=== PATIENT | female | born 1940 | race Caucasian/White ===

== ENCOUNTER 2017-06-15 04:35 | Inpatient (IN) ==
[2017-06-15] MEDS ORDERED: 0.9 % Sodium Chloride 1,000 ML IVC ONE (04:42)
[2017-06-15] MEDS ORDERED: Ondansetron 4 MG/2 ML VIAL IVP ONE (04:44)
[2017-06-15] MEDS ORDERED: *HR* Promethazine 25 MG/ML VIAL IM ONE (04:44)
--- NOTE | 2017-06-15 04:47 | Emergency Department Note ---
START Narrative - START START: I examined this patient and my medical decision-making was reviewed with the Resident Physician. I agree with the documented findings, disposition and treatment plan as described except to the extent set forth below. Afib with RVR , vomiting, will obtain labs and CT SCAN. Disposition pending results of CT scan. I spent greater than 35 minutes of critical care time resuscitating this acutely ill patient suffering from vomiting and afib with rvr. Critical care time is excluding billable procedures.
--- NOTE | 2017-06-15 04:47 | Emergency Department Note ---
Disposition Clinical Impression: NSTEMI (non-ST elevated myocardial infarction) Disposition: Admitted As Inpatient Condition: Good Referrals: Emily Flaherty MD [Primary Care Provider] - Forms: ED Satisfaction Letter, Work/School Release Abdominal Pain HPI - General Chief Complaint: ED Abdominal Pain Stated Complaint: vomiting Time Seen by Provider: 06/15/17 04:42 Source: patient Mode of arrival: ambulatory Limitations: no limitations Nursing Notes Reviewed: Yes Vital Signs Reviewed: Yes - History of Present Illness HPI Narrative: Patient presents to the emergency department for nausea and vomiting. Patient has a history of nausea and vomiting and takes Zofran and Phenergan at home. Patient's symptoms started at 8 PM. Patient's symptoms worsened throughout the night and she called her daughter who then brought her to the emergency department by squad for evaluation. The patient has had 2 MIs in the past that presented with only nausea and vomiting. No chest pain or radiation of pain to the shoulder or jaw. No shortness of breath. Patient is in mild distress with associated nausea and vomiting is not able to further characterize the rest of her symptoms. She states that she just does not feel well. Denies fever or chills. Denies cough or URI symptoms. Denies abdominal pain or blood in her stool. Pain Scale: 0 - Related Data Home Medications Medication Instructions Recorded Confirmed Amlodipine Besylate 10 mg PO HS 04/28/16 04/28/16 Clopidogrel [Plavix] 75 mg PO DAILY 04/28/16 04/28/16 Docusate Sodium [Dok] 100 mg PO BID 04/28/16 04/28/16 Esomeprazole Magnesium [Nexium] 40 mg PO BID 04/28/16 04/28/16 FentaNYL PATCH [Duragesic] 75 mcg TD Q72H 04/28/16 04/28/16 Ferrous Sulfate [Iron] 325 mg PO HS 04/28/16 04/28/16 HYDROcodone/Acet 10/325 mg [[place] 1 tab PO Q6HR PRN 04/28/16 04/28/16 10-325 mg] Irbesartan [Avapro] 300 mg PO DAILY 04/28/16 04/28/16 Metoprolol XL (24 HR) Succ [Toprol 100 mg PO DAILY 04/28/16 04/28/16 Xl] Rosuvastatin [Crestor] 20 mg PO HS 04/28/16 04/28/16 Sucralfate [Carafate] 1 gm PO QPM 04/28/16 04/28/16 Previous Rx's Medication Instructions Recorded Warfarin [Coumadin] 3 mg PO HS #0 04/29/16 Allergies Allergy/AdvReac Type Severity Reaction Status Date / Time aspirin [ASA] AdvReac Gastrointestinal Verified 04/29/16 13:34 Upset Rmwzmey-Vce-Xnf Reductase AdvReac See Verified 04/29/16 13:34 Inhibitor Comments [Statins] Review of Systems: CONSTITUTIONAL: No weight loss, fever, chills, weakness or fatigue. HEENT: Eyes: No visual changes. Ears, Nose, Throat: No hearing loss, difficulty talking or unable to swallow. SKIN: No rash or itching. CARDIOVASCULAR: No chest pain, chest pressure or chest discomfort. No palpitations or edema. RESPIRATORY: No shortness of breath, cough or sputum. GASTROINTESTINAL: Nausea and vomitting. No abdominal pain. GENITOURINARY: No burning on urination or hematuria. NEUROLOGICAL: No headache, dizziness, syncope, paralysis, ataxia, numbness or tingling in the extremities. No change in bowel or bladder control. MUSCULOSKELETAL: No muscle pain, back pain, joint pain or stiffness. Abdominal Pain PMH - Past Medical History Medical history: Reports: atrial fibrillation, CHF, coronary artery disease, CVA , hyperlipidemia, hypertension, myocardial infarction, TIA, other Female Surgical History: Reports: non-contributory Psychiatric history: Reports: no psych history - Social History Smoking status: Never smoker Alcohol use: Reports: none Drug use: Reports: none Physical Exam General: Patient in mild distress with nausea and vomiting Head: Normocephalic Atraumatic Eyes: PERRL, EOMI ENT: Airway patent, no stridor Neck: supple, no meningismus Chest: Lungs clear to auscultation bilateral Cardiac: Regular rate and rhythm, no murmurs, rubs or gallops Abdomen: soft, nontender, nondistended; no guarding, rebound, or tenderness to percussion Musculoskeletal: Calves symmetric, nontender, no palpable cord Skin: No rash, normal skin tone Neuro: Alert and Oriented to person; No focal deficit, - General General appearance: alert Course - Reevaluation(s) Reevaluation #1: Patient has required multiple nausea medications including Zofran, Phenergan, Ativan, Haldol. Patient's nausea is now somewhat controlled. Patient will receive rectal aspirin as well as heparin. Patient will be admitted for NSTEMI. - Consultations Consultation #1: Discussed with hospitalist, Dr. Yip, patient accepted for admission. Vital Signs Temperature 97.7 F 06/15/17 04:36 Pulse Rate 124 06/15/17 04:36 Respiratory Rate 21 06/15/17 04:36 Blood Pressure 153/114 06/15/17 04:36 O2 Sat by Pulse Oximetry 98 06/15/17 04:36 Temperature 97.7 F 06/15/17 04:36 Pulse Rate 99 06/15/17 06:19 Respiratory Rate 20 06/15/17 06:19 Blood Pressure 185/135 06/15/17 06:19 O2 Sat by Pulse Oximetry 99 06/15/17 06:19 Oxygen Delivery Oxygen Delivery Room Air Abdominal Pain - Medical Records Medical records reviewed: Yes I reviewed the patient's medical records. - Lab Data Lab results reviewed: Yes I reviewed the patient's lab results. Result diagrams: 06/15/17 04:32 06/15/17 04:32 Lab Results 06/15/17 06/15/17 06/15/17 Range/Units 04:30 04:32 04:32 WBC 15.9 H (4.3-11.1) K/mcL RBC 4.18 (3.82-4.97) M/mcL Hgb 13.5 (11.5-15.4) g/dL Hct 41.5 (35.3-44.9) % MCV 99.3 (83.0-100.0) fL MCH 32.3 (28.0-33.3) pg MCHC 32.5 (31.6-35.5) g/dL RDW 14.8 H (11.5-14.5) % Plt Count 170 (140-400) K/mcL MPV 10.2 (9.4-12.4) fL Immature Gran % 0.4 (0-4) % Seg Neutrophils % 79.5 % Lymphocytes % 14.2 % Monocytes % 5.3 % Eosinophils % 0.3 % Basophils % 0.3 % Neutrophils # 12.6 H (1.6-8.9) K/mcL Lymphocytes # 2.3 (0.6-4.6) K/mcL Monocytes # 0.8 (0.0-1.3) K/mcL Eosinophils # 0.0 (0.0-0.6) K/mcL Basophils # 0.0 (0.0-0.2) K/mcL PT 19.7 H (9.4-12.1) Seconds INR 1.8 APTT 23.7 L (26.0-36.0) Seconds Sodium (136-145) mEq/L Potassium (3.5-5.1) mEq/L Chloride (98-107) mEq/L Carbon Dioxide (23-29) mEq/L BUN (8-23) mg/dL Creatinine (0.60-1.20) mg/dL Est GFR ( Amer) (> 60) Est GFR (Non-Af Amer) (> 60) BUN/Creatinine Ratio (6-26) Glucose (70-105) mg/dL Calculated Osmolality (280-300) Lactic Acid (0.5-2.2) mmol/L Calcium (8.6-10.3) mg/dL Phosphorus (2.7-4.5) mg/dL Magnesium (1.6-2.6) mg/dL Total Bilirubin (0.3-1.0) mg/dL Direct Bilirubin (0.0-0.2) mg/dL Indirect Bilirubin (0.0-1.2) mg/dL AST (13-39) Units/L ALT (7-52) Units/L Alkaline Phosphatase (34-104) Units/L Troponin I (< 0.04) ng/mL Serum Total Protein (6.4-8.9) g/dL Albumin (3.5-5.7) g/dL Globulin (2.4-3.5) g/dL Albumin/Globulin Ratio (1.1-2.2) Lipase (11-82) Units/L Urine Color Yellow (Yellow) Urine Clarity Clear (Clear) Urine pH 7.5 (5.0-8.0) pH Units Ur Specific [place] 1.014 (1.010-1.025) Urine Protein >=1000 H (Neg-Trace) mg/dL Urine Glucose (UA) 100 H (Normal) mg/dL Urine Ketones Trace H (Negative) mg/dL Urine Blood Small H (Negative) Urine Nitrite Negative (Negative) Urine Bilirubin Negative (Negative) Urine Urobilinogen Normal (Normal) mg/dL Ur Leukocyte Esterase Negative (Negative) Urine Microscopic RBC 0-3 (0-3) per hpf Urine Microscopic WBC 5-15 H (0-3) per hpf Ur Squamous Epith Cells Moderate H (None-Few) per lpf Ur Renal Epithelial Cell Few (None-Few) per hpf Urine Bacteria Moderate H (None-Few) per hpf Hyaline Casts Few (None-Few) per lpf Ur Culture Indicated? NO (NO) 06/15/17 06/15/17 06/15/17 Range/Units 04:32 04:32 04:32 WBC (4.3-11.1) K/mcL RBC (3.82-4.97) M/mcL Hgb (11.5-15.4) g/dL Hct (35.3-44.9) % MCV (83.0-100.0) fL MCH (28.0-33.3) pg MCHC (31.6-35.5) g/dL RDW (11.5-14.5) % Plt Count (140-400) K/mcL MPV (9.4-12.4) fL Immature Gran % (0-4) % Seg Neutrophils % % Lymphocytes % % Monocytes % % Eosinophils % % Basophils % % Neutrophils # (1.6-8.9) K/mcL Lymphocytes # (0.6-4.6) K/mcL Monocytes # (0.0-1.3) K/mcL Eosinophils # (0.0-0.6) K/mcL Basophils # (0.0-0.2) K/mcL PT (9.4-12.1) Seconds INR APTT (26.0-36.0) Seconds Sodium 138 (136-145) mEq/L Potassium 4.1 (3.5-5.1) mEq/L Chloride 100 (98-107) mEq/L Carbon Dioxide 25 (23-29) mEq/L BUN 16 (8-23) mg/dL Creatinine 0.67 (0.60-1.20) mg/dL Est GFR ( Amer) > 60 (> 60) Est GFR (Non-Af Amer) > 60 (> 60) BUN/Creatinine Ratio 24 (6-26) Glucose 167 H (70-105) mg/dL Calculated Osmolality 291 (280-300) Lactic Acid 2.4 H (0.5-2.2) mmol/L Calcium 10.2 (8.6-10.3) mg/dL Phosphorus 3.8 (2.7-4.5) mg/dL Magnesium 1.8 (1.6-2.6) mg/dL Total Bilirubin 0.7 (0.3-1.0) mg/dL Direct Bilirubin 0.1 (0.0-0.2) mg/dL Indirect Bilirubin 0.6 (0.0-1.2) mg/dL AST 23 (13-39) Units/L ALT 22 (7-52) Units/L Alkaline Phosphatase 83 (34-104) Units/L Troponin I 0.26 H* (< 0.04) ng/mL Serum Total Protein 8.8 (6.4-8.9) g/dL Albumin 5.3 (3.5-5.7) g/dL Globulin 3.5 (2.4-3.5) g/dL Albumin/Globulin Ratio 1.5 (1.1-2.2) Lipase 26 (11-82) Units/L Urine Color (Yellow) Urine Clarity (Clear) Urine pH (5.0-8.0) pH Units Ur Specific [place] (1.010-1.025) Urine Protein (Neg-Trace) mg/dL Urine Glucose (UA) (Normal) mg/dL Urine Ketones (Negative) mg/dL Urine Blood (Negative) Urine Nitrite (Negative) Urine Bilirubin (Negative) Urine Urobilinogen (Normal) mg/dL Ur Leukocyte Esterase (Negative) Urine Microscopic RBC (0-3) per hpf Urine Microscopic WBC (0-3) per hpf Ur Squamous Epith Cells (None-Few) per lpf Ur Renal Epithelial Cell (None-Few) per hpf Urine Bacteria (None-Few) per hpf Hyaline Casts (None-Few) per lpf Ur Culture Indicated? (NO) - Radiology Data Radiology results reviewed: Yes I reviewed the patient's radiology results. - EKG Data EKG attestation: Yes I reviewed and interpreted this EKG. EKG results narrative: EKG shows atrial fibrillation with ventricular rate of 123. Patient has depressions in the lateral leads as well as in lead 2. Patient has T-wave changes in 1 and aVL. Does not meet STEMI criteria.
[2017-06-15 05:20] LABS: Basophils % 0.3 %; Eosinophils % 0.3 %; Hematocrit 41.5 % (35.3-44.9); Hemoglobin 13.5 g/dL (11.5-15.4); Immature Granulocytes % 0.4 % (0-4); Lymphocytes # 2.3 K/mcL (0.6-4.6); Lymphocytes % 14.2 %; Mean Corpuscular HGB Conc 32.5 g/dL (31.6-35.5); Mean Corpuscular Hemoglobin 32.3 pg (28.0-33.3); Mean Corpuscular Volume 99.3 fL (83.0-100.0); Mean Platelet Volume 10.2 fL (9.4-12.4); Monocytes # 0.8 K/mcL (0.0-1.3); Monocytes % 5.3 %; Neutrophils # 12.6 K/mcL (1.6-8.9); Platelet Count 170 K/mcL (140-400); Red Blood Count 4.18 M/mcL (3.82-4.97); Red Cell Distribution Width 14.8 % (11.5-14.5); Segmented Neutrophils % 79.5 %
[2017-06-15 05:20] LABS: Bilirubin,Urine Negative (Negative); Blood,Urine Small (Negative); Clarity,Urine Clear (Clear); Color,Urine Yellow (Yellow); Glucose,Urine (UA) 100 mg/dL (Normal); Ketones,Urine Trace mg/dL (Negative); Leukocyte Esterase,Urine Negative (Negative); Nitrite,Urine Negative (Negative); PH,Urine 7.5 pH Units (5.0-8.0); Protein,Urine >=1000 mg/dL (Neg-Trace); Specific Gravity,Urine 1.014 (1.010-1.025); Urobilinogen,Urine Normal (Normal)
[2017-06-15 05:22] LABS: Hyaline Casts,Urine Few per lpf (None-Few); RBC,Urine 0-3 per hpf (0-3)
[2017-06-15 05:24] LABS: Activated Partial Thrombo Time 23.7 Seconds (26.0-36.0); INR 1.8; Prothrombin Time 19.7 Seconds (9.4-12.1)
[2017-06-15 05:27] LABS: Alanine Aminotransferase 22 Units/L (7-52); Albumin 5.3 g/dL (3.5-5.7); Albumin/Globulin Ratio 1.5 (1.1-2.2); Alkaline Phosphatase 83 Units/L (34-104); Aspartate Amino Transferase 23 Units/L (13-39); BUN/Creatinine Ratio 24 (6-26); Bilirubin,Direct 0.1 mg/dL (0.0-0.2); Bilirubin,Indirect 0.6 mg/dL (0.0-1.2); Bilirubin,Total 0.7 mg/dL (0.3-1.0); Blood Urea Nitrogen 16 mg/dL (8-23); Calcium 10.2 mg/dL (8.6-10.3); Carbon Dioxide 25 mEq/L (23-29); Chloride 100 mEq/L (98-107); Globulin 3.5 g/dL (2.4-3.5); Glucose 167 mg/dL (70-105); Lipase 26 Units/L (11-82); Magnesium 1.8 mg/dL (1.6-2.6); Osmolality,Calculated 291 (280-300); Phosphorous 3.8 mg/dL (2.7-4.5); Potassium 4.1 mEq/L (3.5-5.1); Sodium 138 mEq/L (136-145); Total Protein 8.8 g/dL (6.4-8.9); eGFR For African Americans > 60 (> 60); eGFR For Non-African Americans > 60 (> 60)
[2017-06-15 05:34] LABS: Renal Epithelial Cells,Urine Few per hpf (None-Few)
[2017-06-15 05:35] LABS: Bacteria,Urine Moderate per hpf (None-Few); Squamous Epithelial Cell,Urine Moderate per lpf (None-Few)
[2017-06-15] MEDS ORDERED: *HR* FentaNYL (PF) 100 MCG/2 ML VIAL IVP STA (05:47)
[2017-06-15] MEDS ORDERED: *HR* LORazepam 2 MG/ML VIAL IVP ONE (05:48)
[2017-06-15] MEDS ORDERED: Haloperidol Lactate 5 MG/ML VIAL IVP STA (06:35)
[2017-06-15] MEDS ORDERED: *HR* Heparin 5,000 UNIT/ML VIAL IVP ONE (06:44)
[2017-06-15] MEDS: Heparin 25,000 UNIT/500 ML D5W 25,000 UNIT/500 ML BAG IVC SCH (07:07)
[2017-06-15] MEDS ORDERED: Ondansetron 4 MG/2 ML VIAL IVP STA (07:32)
[2017-06-15] MEDS ORDERED: *HR* FentaNYL (PF) 100 MCG/2 ML VIAL IVP ONE (07:32)
[2017-06-15] MEDS ORDERED: *HR* Morphine 2 MG/ML SYRINGE IVP ONE (08:29)
[2017-06-15] MEDS: Metoprolol XL (24 HR) Succ 50 MG TAB.ER.24H PO SCH (11:17)
[2017-06-15] MEDS ORDERED: Naloxone 0.4 MG/ML INJ IVP PRN (12:24)
--- NOTE | 2017-06-15 12:24 | Internal Med History&Physical ---
Date of Encounter: 06/15/17 Time of Encounter: 12:24 Assessment and Plan (1) NSTEMI (non-ST elevated myocardial infarction) Current visit: Yes Status: Acute 76/female Multiple comorbid conditions as mentioned below. Admitted with nausea and vomiting. Noted that she has elevated troponin in the emergency room. Allergies in from cardiology was called for possible non-STEMI. Plan: Admit as inpatient: Patient needs IV heparin. Cardiac diet/nothing by mouth from midnight for possible procedure tomorrow. IV heparin as per protocol. Beta blockers to control heart rate Resumed home medications. Cardiology to evaluate for possible cardiac catheterization. Of note: I examined this patient in emergency department room #21. Many family members including patient's was at bedside. I have discussed the plan with the patient's . (2) Atrial fibrillation Current visit: No Status: Chronic Patient is known to have atrial fibrillation. Rate control: Beta blockers Anticoagulation: Warfarin Qualifiers: Atrial fibrillation type: paroxysmal Qualified Code(s): I48.0 - Paroxysmal atrial fibrillation (3) Hypertension Current visit: No Status: Chronic Well controlled at this time Qualifiers: Hypertension type: essential hypertension Qualified Code(s): I10 - Essential (primary) hypertension (4) CAD (coronary artery disease) Current visit: No Status: Suspected Patient is a history of coronary artery disease. She had a percutaneous coronary intervention in 2011 Qualifiers: Coronary Disease-Associated Artery/Lesion type: [place] artery [place] vs. transplanted heart: [place] heart Associated angina: with unstable angina Qualified Code(s): I25.110 - Atherosclerotic heart disease of [place] coronary artery with unstable angina pectoris (5) DVT prophylaxis Current visit: Yes Status: Acute Heparin drip Medical decision making: This patient has a moderate to severe risk of worsening in spite of being on appropriate medication/treatment due to the underlying chronic comorbid conditions. Internal Medicine - H&P: HPI Chief complaint: Nausea and vomiting. Admitted From: Emergency Dept Plans for Post Hospital Care: Home History of present illness: PCP: Emily Flaherty Brief PMh: Hypertension, hyperlipidemia, coronary artery disease, atrial fibrillation, congestive heart failure, previous TIA/CVA, History of present medical illness: Patient has a persistent worsening symptoms of nausea and ongoing vomiting since last 8 PM. Patient initially thought the symptoms were resolved but since they were persistent she decided to call her daughter for help. Patient's daughter works at [employer]. Patient's daughter went to her mother's house, she called [facility] and brought to this hospital for further evaluation. Patient had a worsening nausea and she had an episode of vomiting. Patient denies any chest pain or chest pressure or radiation of her pain to her arm or jaw. Patient was in mild distress secondary to the nausea and vomiting. Patient denies abdominal pain, diarrhea or dizziness. Workup in the emergency room: Patient was evaluated in the emergency room. Basic labs were drawn. EKG was not suggestive of any ST elevation infarction. Her initial troponin were 0.26. Chest x-ray negative for any acute process. CT abdomen and pelvis was negative for any acute process. Reason for admission: Possible non-ST elevation myocardial infarction. Needs IV heparin Family history: Noncontributory Past Med Surg Social Fam HX - Past Medical History Medical history: atrial fibrillation, CHF, coronary artery disease, CVA, hyperlipidemia, hypertension, myocardial infarction, TIA, other Psychiatric history: no psych history - Past Surgical History Surgical History: angioplasty/stent, cholecystectomy, KRISHNA/BSO, other - Social History Smoking Status: Never smoker Smokeless Tobacco Status: No Alcohol use: none Drug use: none Internal Medicine - H&P: Meds Amlodipine Besylate 10 mg PO HS 04/28/16 [History] Clopidogrel [Plavix] 75 mg PO DAILY 04/28/16 [History] Docusate Sodium [Dok] 100 mg PO BID 04/28/16 [History] Esomeprazole Magnesium [Nexium] 40 mg PO BID 04/28/16 [History] FentaNYL PATCH [Duragesic] 75 mcg TD Q72H 04/28/16 [History] Ferrous Sulfate [Iron] 325 mg PO HS 04/28/16 [History] HYDROcodone/Acet 10/325 mg [[place] 10-325 mg] 1 tab PO Q6HR PRN 04/28/16 [History ] Irbesartan [Avapro] 300 mg PO DAILY 04/28/16 [History] Metoprolol XL (24 HR) Succ [Toprol Xl] 100 mg PO DAILY 04/28/16 [History] Rosuvastatin [Crestor] 20 mg PO HS 04/28/16 [History] Sucralfate [Carafate] 1 gm PO QPM 04/28/16 [History] Warfarin [Coumadin] 3 mg PO HS #0 04/29/16 [Rx] 3 Allergy/AdvReac Type Severity Reaction Status Date / Time aspirin [ASA] AdvReac Gastrointestinal Verified 04/29/16 13:34 Upset Wtfkdkm-Nvg-Mxd Reductase AdvReac See Verified 04/29/16 13:34 Inhibitor Comments [Statins] All Systems PM: A 10-system review of systems was performed and is negative for pertinent findings except as documented above in the HPI. - Constitutional Constitutional: no chills, no fever(s), no night sweats - EENT Eyes: no change in vision, no discharge, no pain, no photophobia Ears: no ear discharge, no ear pain, no tinnitus Nose, mouth and throat: no dysphagia, no nasal discharge, no neck pain, no sore throat - Cardiovascular Cardiovascular ROS IM: no chest pain, no diaphoresis, no dyspnea, no lightheadedness, no palpitations, no syncope - Respiratory Respiratory: no cough, no dyspnea, no wheezing, no excessive phlegm production - Gastrointestinal Gastrointestinal: nausea, vomiting, no abdominal pain, no diarrhea, no hematemesis, no hematochezia, no melena - Genitourinary Genitourinary: no change in urinary stream, no dysuria, no flank pain, no hematuria - Musculoskeletal Musculoskeletal ROS IM: no numbness, no tingling - Integumentary Integumentary IM: no rash, no unusual bruising - Neurological Neurological ROS: no confusion, no convulsions, no focal weakness, no numbness, no tingling, no tremor(s) - Hematologic/Lymphatic Hematologic/Lymphatic: no easy bruising - Constitutional Vitals: Temp Pulse Resp BP Pulse Ox 98.1 F 95 14 132/68 95 06/15/17 11:16 06/15/17 11:16 06/15/17 11:16 06/15/17 11:16 06/15/17 11:16 General appearance: Present: A&O X 3, pleasant, no acute distress, answers questions appropriately - Head Head exam: Present: atraumatic, normocephalic - Eye Eye exam: Present: PERRL, conjuntiva pink, sclera anicteric Pupils: Present: PERRL - Neck Neck exam general surgery: Present: supple, trachea midline. Absent: lymphadenopathy - Respiratory Respiratory exam: Present: CTAB. Absent: accessory muscle use, rales, rhonchi, wheezes - Cardiovascular Cardiovascular exam: Present: RRR, +S1, +S2. Absent: diastolic murmur, gallop, rubs, systolic murmur - GI/Abdominal GI/Abdominal exam: Present: normal bowel sounds, soft, no peritoneal signs. Absent: distended, tenderness - Extremities Exam Extremities exam: Present: warm, radial pulses palpable and symmetrical. Absent : calf tenderness, cyanotic, pedal edema - Neurological Exam Neurological exam: Present: CN II-XII intact, oriented X3, no focal deficits. Absent: pronater drift, facial droop, speech deficit - Skin Skin exam: Present: dry, intact Internal Med - H&P Results - Labs CBC & Chem 7: 06/15/17 04:32 06/15/17 04:32 Labs: Cardiac Enzymes 06/15/17 Range/Units 10:09 Troponin I 0.73 H* (< 0.04) ng/mL
--- NOTE | 2017-06-15 12:39 | Cardiology Consult Note ---
Date of Encounter: 06/15/17 Time of Encounter: 12:36 Assessment and Plan Discussion w patient/family: The assessment and plan as outlined above was discussed with the patient and/or family members who expressed understanding and agreement. All questions were answered. Thank you for involving us in the care of your patient. Please call with any questions. 76 YOF with AFIB and hx of CAD (PCI 2011) now with NSTEMI. Multipe comorbidities with PUD and constant incessant nausea over past few years. ECHO to evaluate for RWMA in order to risk stratify need for invasive vs conservative medical management. History of Present Illness Consult date: 06/15/17 Consult reason: elevated troponins Chief complaint: nausea and vomiting History of present illness: Ms. Gutierrez is a 76 year old female with hx of Afib (on coumadin), HTN, CAD s/p PCI last in 2011 at an outside hospital presents with continuous nausea and vomiting. Patient does have hx of PUD and follows with GI. Apparently on phenergan and PPI almost constantly due to her symptoms. She also is unable to complete her meals due to above symtpoms. Patient is currently sedated and unable to provide hx mostly obtained from family. Her troponins are mildly elevated at .73 now but she has not complained of chest pain. She was hypertensive also on presentation with tachycardia. EKG reveals diffuse ST changes in the setting of Afib. Previous EKG also reveal ST changes in the anterolateral leads. Previous ECHO in 2016 revealed preserved EF with no RWMA. Will obtain a limited ECHO for EF to evaluate changes. ECHO will help risk stratify as family unsure if they want invasive or conservative management. Past Med Surg Social Fam HX - Past Medical History Medical history: atrial fibrillation, CHF, coronary artery disease, CVA, hyperlipidemia, hypertension, myocardial infarction, TIA, other Psychiatric history: no psych history - Past Surgical History Surgical History: angioplasty/stent, cholecystectomy, KRISHNA/BSO, other - Social History Smoking Status: Never smoker Smokeless Tobacco Status: No Alcohol use: none Drug use: none Medications and Allergies Amlodipine Besylate 10 mg PO HS 04/28/16 [History] Clopidogrel [Plavix] 75 mg PO DAILY 04/28/16 [History] Docusate Sodium [Dok] 100 mg PO BID 04/28/16 [History] Esomeprazole Magnesium [Nexium] 40 mg PO BID 04/28/16 [History] FentaNYL PATCH [Duragesic] 75 mcg TD Q72H 04/28/16 [History] Ferrous Sulfate [Iron] 325 mg PO HS 04/28/16 [History] HYDROcodone/Acet 10/325 mg [[place] 10-325 mg] 1 tab PO Q6HR PRN 04/28/16 [History ] Irbesartan [Avapro] 300 mg PO DAILY 04/28/16 [History] Metoprolol XL (24 HR) Succ [Toprol Xl] 100 mg PO DAILY 04/28/16 [History] Rosuvastatin [Crestor] 20 mg PO HS 04/28/16 [History] Sucralfate [Carafate] 1 gm PO QPM 04/28/16 [History] Warfarin [Coumadin] 3 mg PO HS #0 04/29/16 [Rx] 3 Allergy/AdvReac Type Severity Reaction Status Date / Time aspirin [ASA] AdvReac Gastrointestinal Verified 04/29/16 13:34 Upset Wumodhc-Chk-Nqz Reductase AdvReac See Verified 04/29/16 13:34 Inhibitor Comments [Statins] All Systems Review: A 10-system review of systems was performed and is negative for pertinent findings except as documented above in the HPI. Physical Examination Vital Signs, Last 4 Hours Temp Pulse Resp BP Pulse Ox 06/15/17 11:16 98.1 F 95 14 132/68 95 06/15/17 08:45 100.1 F H 95 15 167/90 95 General: Conversant, No Apparent Distress HEENT: Atraumatic, Normocephaly, Mucus Membranes Moist Neck: No JVD, Normal carotid pulses Cardiac: Reg Rate and Rhythm, Normal S1 and S2, No Murmur Lungs: Normal Breath Sounds, No Wheeze, Rales, Rhonchi Neuro: Alert and responsive, No focal deficits noted Abdomen: Soft, Non-Tender Skin: No rashes noted on visualized skin Musculoskeletal: No Chest Wall Tenderness Extremities: No Clubbing, No Cyanosis, No Edema, Normal Pulses Results 06/15/17 04:32 06/15/17 04:32 Lab Results 06/15/17 10:09 Troponin I 0.73 H* Consult Discharge Plan - Plan Referrals: Emily Flaherty MD [Primary Care Provider] -
[2017-06-15] MEDS: *HR* Heparin 5,000 UNIT/ML VIAL IVP PRN (14:58)
[2017-06-15] MEDS: *HR* Morphine 2 MG/ML SYRINGE IVP PRN ×2 (14:58→20:29)
[2017-06-15] MEDS: amLODIPine 5 MG TABLET PO SCH (20:28)
[2017-06-16] MEDS: *HR* Morphine 2 MG/ML SYRINGE IVP PRN ×3 (00:36→09:29)
[2017-06-16 02:37] LABS: Basophils % 0.2 %; Eosinophils % 0.4 %; Hematocrit 36.5 % (35.3-44.9); Immature Granulocytes % 0.6 % (0-4); Lymphocytes % 23.6 %; Mean Corpuscular HGB Conc 32.6 g/dL (31.6-35.5); Mean Corpuscular Hemoglobin 32.1 pg (28.0-33.3); Mean Corpuscular Volume 98.4 fL (83.0-100.0); Mean Platelet Volume 10.2 fL (9.4-12.4); Monocytes # 0.6 K/mcL (0.0-1.3); Monocytes % 7.1 %; Neutrophils # 5.8 K/mcL (1.6-8.9); Platelet Count 143 K/mcL (140-400); Red Blood Count 3.71 M/mcL (3.82-4.97); Segmented Neutrophils % 68.1 %
[2017-06-16 02:43] LABS: Hemoglobin 11.9 g/dL (11.5-15.4)
[2017-06-16 02:46] LABS: INR 1.5; Prothrombin Time 16.8 Seconds (9.4-12.1)
[2017-06-16 02:49] LABS: Activated Partial Thrombo Time 80.6 Seconds (26.0-36.0)
[2017-06-16 02:56] LABS: Albumin 3.9 g/dL (3.5-5.7); Albumin/Globulin Ratio 1.5 (1.1-2.2); Bilirubin,Total 0.6 mg/dL (0.3-1.0); Calcium 8.5 mg/dL (8.6-10.3); Chol/HDL Ratio 3.2 (0-4.9); Globulin 2.6 g/dL (2.4-3.5); Magnesium 1.7 mg/dL (1.6-2.6); Phosphorous 5.7 mg/dL (2.7-4.5); Total Protein 6.5 g/dL (6.4-8.9)
[2017-06-16] MEDS: Metoprolol XL (24 HR) Succ 50 MG TAB.ER.24H PO SCH (08:47)
--- NOTE | 2017-06-16 09:35 | Event Note ---
Date of Encounter: 06/16/17 Time of Encounter: 09:32 - Cardiology Event Note NSTEMI, peak troponin 1.15, now downtrending. Echo EF reduced, 35% with regional wall motion abnormalities. EF previously 65-70% 04/29/17. ASA listed as allergy. Discussed with pt. She is able to tolerate 81mg ASA without issue. She gets stomach upset with full dose ASA. Creatinine 1.19--mildly elevated from her baseline. Will give IVF. Recommend C given NSTEMI and reduced EF. R/B /A discussed. Pt agrees to proceed. LHC today.
[2017-06-16] MEDS ORDERED: 0.9 % Sodium Chloride 1,000 ML IVC SCH (09:45)
--- NOTE | 2017-06-16 12:44 | Pre-Sedation Evaluation ---
Pre-sedation evaluation - Pre-sedation checklist Date of procedure: 06/16/17 Procedure: [facility] Recent Vitals: Last Vital Signs Temp 98.1 F 06/16/17 11:29 Pulse 55 06/16/17 11:29 Resp 16 06/16/17 11:29 BP 119/68 06/16/17 11:29 Pulse Ox 95 06/16/17 11:29 H&P (including ROS) documented in medical record: Yes Previous reaction to sedatives/anesthetics: No Dietary Status: NPO after Midnight Dentition: dentures removed ASA Classification *see protocol: CLASS II-Mild systemic disease Plan of Care: Pt appropriate candidate for procedure/moderate/conscious sedation
--- NOTE | 2017-06-16 12:48 | Internal Med Progress Note ---
Date of Encounter: 06/16/17 Time of Encounter: 12:45 - Assessment and plan (1) NSTEMI (non-ST elevated myocardial infarction) Current Visit: Yes Status: Acute Assessment and plan: Troponin peaked at 1.15 Scheduled to have a cardiac catheterization today Continue aspirin, heparin drip, metoprolol, morphine as needed and Crestor Nitroglycerin as needed (2) Atrial fibrillation Current Visit: No Status: Chronic Qualifiers: Atrial fibrillation type: paroxysmal Qualified Code(s): I48.0 - Paroxysmal atrial fibrillation (3) PUD (peptic ulcer disease) Current Visit: No Status: Chronic Assessment and plan: Omeprazole (4) CVA (cerebral vascular accident) Current Visit: No Status: Chronic Assessment and plan: Aspirin Qualifiers: CVA mechanism: unspecified Qualified Code(s): I63.9 - Cerebral infarction, unspecified (5) Accelerated hypertension Current Visit: Yes Status: Acute Assessment and plan: Continue losartan Use hydralazine IV as needed - Subjective Interval history: History of breath, denies any chest pain, no abdominal pain, no dysuria. No fevers or chills, no diarrhea - Constitutional Vitals: Temp Pulse Resp BP Pulse Ox 98.1 F 55 16 119/68 95 06/16/17 11:29 06/16/17 11:29 06/16/17 11:29 06/16/17 11:29 06/16/17 11:29 General appearance: Present: A&O X 3, pleasant, no acute distress, answers questions appropriately - Head Head exam: Present: atraumatic, normocephalic - Eye Eye exam: Present: PERRL, conjuntiva pink, sclera anicteric Pupils: Present: PERRL - Neck Neck exam general surgery: Present: supple, trachea midline. Absent: lymphadenopathy - Respiratory Respiratory exam: Present: CTAB. Absent: accessory muscle use, rales, rhonchi, wheezes - Cardiovascular Cardiovascular exam: Present: RRR, +S1, +S2. Absent: diastolic murmur, gallop, rubs, systolic murmur - GI/Abdominal GI/Abdominal exam: Present: normal bowel sounds, soft, no peritoneal signs. Absent: distended, tenderness - Extremities Exam Extremities exam: Present: warm, radial pulses palpable and symmetrical. Absent : calf tenderness, cyanotic, pedal edema - Neurological Exam Neurological exam: Present: CN II-XII intact, oriented X3, no focal deficits. Absent: pronater drift, facial droop, speech deficit - Skin Skin exam: Present: dry, intact Internal Medicine: Result - Labs CBC & Chem 7: 06/16/17 02:24 06/16/17 02:24 Labs: Short CBC 06/16/17 Range/Units 02:24 WBC 8.5 (4.3-11.1) K/mcL Hgb 11.9 D (11.5-15.4) g/dL Hct 36.5 (35.3-44.9) % Plt Count 143 (140-400) K/mcL Neutrophils # 5.8 (1.6-8.9) K/mcL BMP 06/16/17 02:24 Sodium 136 Potassium 4.0 Chloride 102 Carbon Dioxide 23 BUN 29 H Creatinine 1.19 Glucose 106 H Calcium 8.5 L Cardiac Enzymes 06/15/17 06/15/17 06/16/17 Range/Units 12:35 18:40 00:32 Troponin I 1.15 H* 1.02 H* 0.71 H* (< 0.04) ng/mL Liver Function 06/16/17 Range/Units 02:24 Total Bilirubin 0.6 (0.3-1.0) mg/dL AST 20 (13-39) Units/L ALT 17 (7-52) Units/L Alkaline Phosphatase 59 (34-104) Units/L Albumin 3.9 (3.5-5.7) g/dL - ABG Interpretation ABG results: PT/INR, D-dimer PT 16.8 Seconds (9.4-12.1) H 06/16/17 02:24 - Impressions Impressions Echocardiogram Limited Views 06/15/17 12:36 Impressions: Limited ECHO for EF Indeterminate diastolic function. LVEF 35% with RWMA as described above Left Ventricular Wall Motion: Rest Echo Findings The apical inferior, mid inferior and basal inferior pérez were hypokinetic. The mid inferior septal and basal inferior septal pérez were akinetic. All other wall segments showed normal motion. Findings: Study Quality * Technically adequate exam. ECG Findings * Atrial fibrillation. Left Ventricle * LVEF 35%. * Indeterminate diastolic function. Right Ventricle * Normal right ventricular structure and function. Left Atrium * Normal left atrial size. Right Atrium * Normal right atrial size. Interatrial Septum * Interatrial septum not well evaluated. Pericardium * The pericardium appears normal. IVC * Normal IVC dimensions and inspiratory collapse. Consult Discharge Plan - Plan Referrals: Emily Flaherty MD [Primary Care Provider] -
[2017-06-16] MEDS ORDERED: Nitroglycerin 0.4 MG TAB.SUBL SL PRN (12:49)
[2017-06-16] MEDS ORDERED: 0.9 % Sodium Chloride 1,000 ML ONE ×2 (13:05→13:34)
[2017-06-16] MEDS ORDERED: *HR* Heparin 10,000 UNIT/10 ML VIAL ONE (13:06)
[2017-06-16] MEDS ORDERED: Heparin 1,000 UNITS/500 mL 500 ML ONE (13:06)
[2017-06-16] MEDS ORDERED: Nitroglycerin 1,000 MCG/10 ML VIAL IV ONE (13:06)
[2017-06-16] MEDS ORDERED: *HR* FentaNYL (PF) 100 MCG/2 ML VIAL ONE (13:34)
[2017-06-16] MEDS ORDERED: *HR* Midazolam HCl 2 MG/2 ML VIAL ONE (13:34)
--- NOTE | 2017-06-16 13:59 | Electrocardiograph Report ---
[place] [address] Test Date: 2017-06-15 Pat Name: Korin Gutierrez Department: 104 Room: 2NE30 Gender: F Manager Cash: : 1940 Requested By: Oren Escobar Order Number: [id number] Reading MD: Ria Portillo Measurements Intervals [place] Rate: 123 P: [place]: 0 QRS: -1 QRSD: 88 T: 105 QT: 330 QTc: 403 Interpretive Statements ATRIAL FIBRILLATION WITH RAPID VENTRICULAR RESPONSE MODERATE VOLTAGE CRITERIA FOR LVH, CONSIDER NORMAL VARIANT [MEETS CRITERIA IN ONE OF: R(aVL), S(V1), R(V5), R(V5/V6)+S(V1)] ST DEVIATION AND MODERATE T-WAVE ABNORMALITY, CONSIDER LATERAL ISCHEMIA [-0.1+ mV T WAVE IN I/aVL/V5/V6] Electronically Signed On 06-16-2017 13:57:33 EST by Ria Portillo
--- NOTE | 2017-06-16 14:03 | Electrocardiograph Report ---
[place] [address] Test Date: 2017-06-15 Pat Name: Korin Gutierrez Department: 104 Room: 2NE30 Gender: F Living Supervisor: : 1940 Requested By: Calvin Fong Order Number: [id number] Reading MD: Ria Portillo Measurements Intervals [place] Rate: 120 P: [place]: 0 QRS: -14 QRSD: 95 T: 77 QT: 355 QTc: 426 Interpretive Statements ATRIAL FLUTTER/TACHYCARDIA WITH RAPID VENTRICULAR RESPONSE LEFT VENTRICULAR HYPERTROPHY AND ST-T CHANGE [VOLTAGE CRITERIA PLUS ST/T ABNORMALITY] Electronically Signed On 06-16-2017 14:01:51 EST by Ria Portillo
--- NOTE | 2017-06-16 14:28 | Invasive Diagnostic Lab Proc ---
Name: Korin Gutierrez Date of Study: 06/16/2017 Date: 1940 Ht: 63.0in Medical Record#: [id number] Age: 76 Wt: 145.51lb Gender: Female BSA: 1.69 Order #: [id number] BMI: 25.78 Physicians Procedure Physician: Kimmy Hatch MD Referring MD: Referring MD: Staff Name Position Time In Jimena Ovalle RN Nuclear Reactor Technician 01:27 PM Shantelle Caballero RT (R) Scrub 01:27 PM [facility], Paige RT (R) Monitor 01:27 PM Indications Indication Non-Stemi Procedures Performed Procedure CORONARY ARTERY ANGIO S&I Pre-Procedure Checklist Informed consent is complete signed and on chart. H&P is on chart. ID band is on and ID verified with patient. Patient NPO for procedure The procedure was described for the patient and questions were answered. Blood Pressure: 132/58 ECG is on chart. Rhythm: NSR Plan of Care Patient will tolerate the procedure without complications. Adequate level of comfort will be maintained. Hemodynamics will remain stable Patient will recover from procedure without complications. Respiratory function will be maintained. Cardiac rhythm will remain stable. Patient temperature will be maintained. Patient and/or family have verbalized understanding of the procedure. Patient Education Chief Complaint/Reason for Test: Cardiac Cath Developmental Category: Geriatric (65+ years) Developmentally Appropriate for Age: Yes Learning Barriers: None Education Needs: Procedure Education Method: Verbal Information Taught: Cardiac Cath Educational Evaluation: Able to repeat information Intravenous Access Time IV Size Location DC'd Fluid/Drip Rate Units RN 01:26 PM 20g 1 06/05" Patent On Arrival Rt Antecubital 0.9NaCl 25 ml/hr Jimena Ovalle RN Allergies Salicylate, Aspirin Atorvastatin Lovastatin aspirin Vital Signs Time BP (mmHg) HR (bpm) O2 Sat. RR (bpm) LOC 01:26 PM 132 / 58 61 95 % 16 01:29 PM / % 5 = Fully awake and oriented or at pre-proc level 01:50 PM 162 / 78 66 100 % 15 01:56 PM 161 / 68 63 100 % 23 02:00 PM 134 / 64 64 100 % 17 02:05 PM 147 / 69 69 100 % 33 02:10 PM 149 / 66 62 100 % 37 02:15 PM 142 / 69 61 100 % 26 Procedural Medications Time Medication Dose Units Method Given By 01:50 PM Oxygen 2 L/min nasal cannula Shantelle Caballero RT (R) 01:50 PM Versed 0.5 mg Intravenous Jimena Ovalle RN 01:51 PM Fentanyl 25 mcg Intravenous Jimena Ovalle RN 01:56 PM Lidocaine 2% 10 ml Subcutaneous Kimmy Hatch MD 01:58 PM Lidocaine 2% 10 ml Subcutaneous Kimmy Hatch MD ASA Classification: CLASS II- Mild systemic disease (i.e. well-controlled diabetes, hypertension, asthma, cigarette smoking) Cornel Score Preprocedure Postprocedure Activity 2- Moves 4 extremities sustained head lift Activity 2- Moves 4 extremities sustained head lift Circulation 2- SBP +/= 20 points of pre-anesthetic level Circulation 2- SBP +/= 20 points of pre-anesthetic level Consciousness 2- Awake and alert oriented x 3 Consciousness 2- Awake and alert oriented x 3 O2 Saturation 2- Able to maintain O2 satruation of 92% on room air O2 Saturation 2- Able to maintain O2 satruation of 92% on room air Respiratory 2- Able to deep breathe and cough well Respiratory 2- Able to deep breathe and cough well Total Score 10 Total Score 10 Contrast Agent: Isovue Diagnostic Contrast: 71 ml Total Contrast: 71 ml Fluoro Dose: 199 mGy Procedure Log Time Note Enter By :27 PM Pt arrived to central lab technician 2 at 13:26 : PM Patient charges- Angio tray pack, Navilyst 3mm J, Pulse Oximetry and ACIST tubing and transducer : PM IV Supplies used: J loop Angio Cath. : PM Case Delayed No, inpatient : PM Jimena Ovalle RN Position: Nuclear Reactor Technician Time in: :: PM Shantelle Caballero RT (R) Position: Scrub Time in: :: PM Paige Vee RT (R) Position: Monitor Time in: :: PM Physician arrived 13:: PM Meet and greet completed : PM Sign in performed according to hospital policy. : PM Procedure start 13:28 [email or web address] 01:29 PM Time: 13:29 Patient comfortable and pain free: [facility] PM Time: 13:29LOC: 5 = Fully awake and oriented or at pre-proc level [email or web address] :39 PM CathStat 01:39 PM Vitals capture started with the following parameters, Patient=Adult, Interval=5 min, Initial Erkdwbwa=495 mmHg, Deflation Rate=5 mmHg, Cuff placed on Left Arm 01:39 PM Recorded ECG: HR=64 Condition=Condition 1 01:40 PM Vitals capture stopped. 01:50 PM Vitals capture started with the following parameters, Patient=Adult, Interval=5 min, Initial Ioeuiuit=253 mmHg, Deflation Rate=5 mmHg, Cuff placed on Left Arm 01:50 PM Recorded ECG: HR=67 Condition=Condition 1 01:50 PM HR=66 bpm, VCDI=966/78 mmhg, OvO8=009.0 %, Resp=15 B/min 01:50 PM Time: 13:50 Oxygen on at 2 L/min per nasal cannula by Shantelle Caballero RT (R) tsites :51 PM Time: 13:50 Versed 0.5 mg Intravenous Given by Jimena Ovalle RN tsites :51 PM Time: 13:51 Fentanyl 25 mcg Intravenous Given by Jimena Ovalle RN tsites :51 PM Hair removed from procedure site in holding area using clippers. Bilateral groin prepped with Chloraprep by Paige Vee RT (R), safety strap applied then patient was draped. Skin intact. tsites 01:56 PM HR=63 bpm, CPEZ=339/68 mmhg, FbJ5=054.0 %, Resp=23 B/min 01:56 PM Clinical Presentation: Non-STEMI tsites :56 PM Time out performed according to hospital policy tsites 01:57 PM Time: 13:56 10 ml Lidocaine 2% to right groin Subcutaneous Given by Kimmy Hatch MD tsites :57 PM Micro-Introducer Kit utilized for sheath placement tsites 01:57 PM Pressure channel 1 zeroed. 01:58 PM Time: 13:58 10 ml Lidocaine 2% to right groin Subcutaneous Given by Kimmy Hatch MD tsites 01:59 PM 3cc of contrast injected intot the right femoral artery tsites 02:00 PM HR=64 bpm, YVAF=091/64 mmhg, EzC7=386.0 %, Resp=17 B/min 02:00 PM Access obtained by percutaneous puncture. 6Fr 10cm Terumo Falcon sheath placed in right Femoral artery. [id number] tsites 02:01 PM 5Fr FL 4 catheter inserted over the wire [facility] tsites 02:01 PM 0.035 145cm Navilyst 3mmJ wire [id number] tsites 02:01 PM Wire removed tsites 02:01 PM LCA angiography performed in multiple views. tsites 02:02 PM Recorded Pressure: Ao, HR=63, Condition=Condition 1 (Aorta) Ao 128/16/57 02:04 PM wire reinserted catheter removed tsites 02:04 PM 5Fr FR 4 catheter inserted over the wire [facility] tsites 02:04 PM RCA angiography performed in multiple views. tsites 02:05 PM Recorded Pressure: Ao, HR=74, Condition=Condition 1 (Aorta) Ao 136/10/65 02:05 PM HR=69 bpm, LPJU=384/69 mmhg, FvF5=618 %, Resp=33 B/min 02:06 PM Coronary Dominance: right tsites 02:06 PM Lesion found in Mid RCA. Pre Stenosis: 40 Pre EDEL Flow: tsites 02:06 PM Catheter removed tsites 02:06 PM Physician reviewing films tsites 02:09 PM 6Fr FL4 catheter inserted over the wire [id number] tsites 02:10 PM HR=62 bpm, NKZC=201/66 mmhg, WbR9=408 %, Resp=37 B/min 02:11 PM LCA angiography performed in multiple views. tsites 02:11 PM Catheter removed tsites 02:11 PM Procedure completed at 14:11 tsites 02:11 PM Sign out completed: Radiation Dose 199 mGy Fluoro Time: 1.6 Isovue 370 - 200ml contrast 71 ml given by Kimmy Hatch MD. Complications: NoneCardiac Rehab Consult needed: YesConfirmed administered medications: Yes tsites 02:11 PM Isovue 370 - 200ml,1 Bottle(s) used. tsites 02:12 PM Arterial sheath pulled, Mynx closure device used and was Successful S/N. tsites 02:12 PM Estimated Blood Loss: minimal tsites 02:12 PM Post ECG NSR tsites 02:12 PM Post Blood Pressure 149/66 tsites 02:12 PM 14:12 Post Pulses Bilateral DP & PT 1+ tsites 02:12 PM Information taught Cardiac Cath and Mynx tsites 02:12 PM Education needs Procedure, Plan of Care, and Responsibilities of Patient in Care tsites 02:12 PM Learning barriers :None tsites 02:12 PM Education Methods Verbal tsites 02:12 PM Education evaluation Able to repeat information tsites 02:12 PM Site status No bleeding/hematoma - Rt Groin as reported by Shantelle Caballero RT (R) at 14:12 tsites 02:12 PM Opsite applied tsites 02:13 PM Delay to floor No tsites 02:13 PM Patient out of room: 14:13 tsites 02:13 PM Family placed in consult room. tsites 02:14 PM Report given to fern LÓPEZ Pt taken to 2NE Room #30. 14:13 tsites 02:15 PM HR=61 bpm, NZAW=114/69 mmhg, TwV3=832 %, Resp=26 B/min Complications Complication None Hemodynamics Pressures Site Systolic/A Wave Diastolic/V Wave Mean AO 128 16 57 AO 136 10 65 Post Procedure Information Blood Pressure: 149/66 mmHg Rhythm: NSR Post procedural instructions were given Closure Device Time Device Success/Fail 06/16/2017 2:18:00 PM MynxGrip Successful Site Checks Time Location Status Staff Sheath In? Note 02:12 PM Rt Groin No bleeding/hematoma Shantelle Caballero RT (R) Pulses Time Site Pre-Procedure Post-Procedure Note 06/16/2017 1:26:00 PM Bilateral DP & PT 2+ 06/16/2017 1:26:00 PM Bilateral radial 2+ 2:12:00 PM Bilateral DP & PT 1+ Updated by Paige Vee RT (R) on 06/16/2017 2:21:26 PM Paige Vee RT electronically signed on 06/16/2017 2:21:47 PM with status of Final
--- NOTE | 2017-06-16 15:39 | Event Note ---
Date of Encounter: 06/16/17 Time of Encounter: 15:32 Results of cardiac catheterization reveiwed. Patient stents, nonobstuctive CAD. Recommend continue Plavix, statin, BB, ARB therapy. Euvolemic currently - hold off diuretic for now. Low sodium diet, 2L daily fluid restriction. Repeat TTE as outpatient to re-evaluate LVEF. No further inpatient cardiology recommendations. Also history of AF - Continue Coumadin. Please call if any questions or concerns. Followup with cardiology within 1-2 weeks. Thanks, Braxton Oates DO, FACC
[2017-06-16] MEDS ORDERED: *HR* Warfarin 2 MG TABLET PO ONE (18:00)
[2017-06-16] MEDS ORDERED: Warfarin perPT PO PRN (18:00)
[2017-06-16] MEDS: *HR* HYDROcodone/Acet 10/325 mg TABLET PO PRN (18:32)
[2017-06-16] MEDS: Heparin 25,000 UNIT/500 ML D5W 25,000 UNIT/500 ML BAG IVC SCH (19:06)
[2017-06-16] MEDS: *HR* Heparin 5,000 UNIT/ML VIAL IVP PRN (19:10)
[2017-06-16] MEDS: Sucralfate 1 GM TABLET PO SCH (20:01)
[2017-06-16] MEDS: amLODIPine 5 MG TABLET PO SCH (20:01)
[2017-06-17] MEDS: *HR* HYDROcodone/Acet 10/325 mg TABLET PO PRN ×2 (00:34→18:59)
[2017-06-17 00:57] LABS: INR 1.3
[2017-06-17 01:11] LABS: Calcium 7.9 mg/dL (8.6-10.3); Potassium 3.2 mEq/L (3.5-5.1)
[2017-06-17 01:12] LABS: Activated Partial Thrombo Time 123.2 Seconds (26.0-36.0)
[2017-06-17 01:23] LABS: Heparin anti-factor XA UFH 1.08 IU/mL (0.30-0.70)
[2017-06-17 08:37] LABS: Basophils % 0.4 %; Eosinophils % 0.2 %; Hematocrit 34.1 % (35.3-44.9); Hemoglobin 11.1 g/dL (11.5-15.4); Immature Granulocytes % 0.6 % (0-4); Lymphocytes # 1.6 K/mcL (0.6-4.6); Lymphocytes % 18.8 %; Mean Corpuscular HGB Conc 32.6 g/dL (31.6-35.5); Mean Corpuscular Hemoglobin 32.4 pg (28.0-33.3); Mean Corpuscular Volume 99.4 fL (83.0-100.0); Mean Platelet Volume 10.2 fL (9.4-12.4); Monocytes # 0.5 K/mcL (0.0-1.3); Monocytes % 5.5 %; Neutrophils # 6.2 K/mcL (1.6-8.9); Platelet Count 124 K/mcL (140-400); Red Blood Count 3.43 M/mcL (3.82-4.97); Red Cell Distribution Width 15.2 % (11.5-14.5); Segmented Neutrophils % 74.5 %
[2017-06-17] MEDS ORDERED: *HR* FentaNYL PATCH 50 MCG PATCH TD SCH (09:00)
[2017-06-17] MEDS: Sucralfate 1 GM TABLET PO SCH ×2 (09:53→22:07)
[2017-06-17] MEDS: Metoprolol XL (24 HR) Succ 50 MG TAB.ER.24H PO SCH (09:55)
[2017-06-17] MEDS: *HR* Heparin 5,000 UNIT/ML VIAL IVP PRN ×2 (09:57→18:49)
--- NOTE | 2017-06-17 11:18 | Internal Med Progress Note ---
<Robert Marquez - Last Filed: 06/17/17 13:22> Date of Encounter: 06/17/17 Time of Encounter: 11:02 - Assessment and plan (1) NSTEMI (non-ST elevated myocardial infarction) Current Visit: Yes Status: Acute Assessment and plan: Previous 5 stents placed. Troponin peaked at 1.15, have since dropped. Cath performed on 06/16/17 and no lesions found. - Cardiology signed off and will follow up in clinic. - Continue plavix, heparin drip, metoprolol, morphine as needed and Crestor - Nitroglycerin as needed - Cardiac diet - low sodium - PT/OT consulted for increase of activity (2) Accelerated hypertension Current Visit: Yes Status: Acute Assessment and plan: Continue losartan Use hydralazine IV as needed (3) DVT prophylaxis Current Visit: Yes Status: Acute Assessment and plan: heparin (4) Atrial fibrillation Current Visit: No Status: Chronic Assessment and plan: continue amlodopine and metoprolol. - on plavix - HR goal <100 Qualifiers: Atrial fibrillation type: paroxysmal Qualified Code(s): I48.0 - Paroxysmal atrial fibrillation (5) CHF (congestive heart failure) Current Visit: No Status: Chronic Assessment and plan: cardiology will follow up outpatient echo for LVEF Qualifiers: Congestive heart failure type: diastolic Congestive heart failure chronicity: chronic Qualified Code(s): I50.32 - Chronic diastolic (congestive ) heart failure (6) CVA (cerebral vascular accident) Current Visit: No Status: Chronic Assessment and plan: Plavix Qualifiers: CVA mechanism: unspecified Qualified Code(s): I63.9 - Cerebral infarction, unspecified (7) PUD (peptic ulcer disease) Current Visit: No Status: Chronic Assessment and plan: ct Omeprazole - Subjective Interval history: Ms Gutierrez is a 76 yo F w/ PMH HTN, HLD, CAD, Afib, CHF, TIA/CVA, PUD presented to [facility] ED with nausea and vomiting, and tachycardic. Today she denies symptoms of nausea, vomiting, dyspnea, diaphoresis, chest pain. Overall she's feeling better today. - Constitutional Vitals: Temp Pulse Resp BP Pulse Ox 98.6 F 63 12 129/64 96 06/17/17 07:06 06/17/17 07:06 06/17/17 07:06 06/17/17 07:06 06/17/17 07:06 General appearance: Present: A&O X 3, pleasant, no acute distress, answers questions appropriately - Respiratory Respiratory exam: Present: CTAB. Absent: accessory muscle use, rales, rhonchi, wheezes - Cardiovascular Cardiovascular exam: Present: RRR, +S1, +S2. Absent: diastolic murmur, gallop, rubs, systolic murmur - GI/Abdominal GI/Abdominal exam: Present: normal bowel sounds, soft, no peritoneal signs. Absent: distended, tenderness - Psychiatric Psychiatric exam: Present: normal affect, normal mood Internal Medicine: Result - Labs CBC & Chem 7: 06/17/17 08:28 06/17/17 00:36 Labs: Short CBC 06/17/17 Range/Units 08:28 WBC 8.4 (4.3-11.1) K/mcL Hgb 11.1 L (11.5-15.4) g/dL Hct 34.1 L (35.3-44.9) % Plt Count 124 L (140-400) K/mcL Neutrophils # 6.2 (1.6-8.9) K/mcL BMP 06/17/17 00:36 Sodium 136 Potassium 3.2 L Chloride 105 Carbon Dioxide 20 L BUN 46 H Creatinine 1.10 Glucose 140 H Calcium 7.9 L - ABG Interpretation ABG results: PT/INR, D-dimer PT 14.0 Seconds (9.4-12.1) H 06/17/17 00:36 Consult Discharge Plan - Plan Referrals: Emily Flaherty MD [Primary Care Provider] - <Antonio Vera - Last Filed: 06/17/17 18:43> Date of Encounter: 06/17/17 - Assessment and plan (1) NSTEMI (non-ST elevated myocardial infarction) Current Visit: Yes Status: Acute (2) Atrial fibrillation Current Visit: No Status: Chronic Qualifiers: Atrial fibrillation type: paroxysmal Qualified Code(s): I48.0 - Paroxysmal atrial fibrillation (3) CHF (congestive heart failure) Current Visit: No Status: Chronic Qualifiers: Congestive heart failure type: diastolic Congestive heart failure chronicity: chronic Qualified Code(s): I50.32 - Chronic diastolic (congestive ) heart failure (4) Hypertension Current Visit: No Status: Chronic Qualifiers: Hypertension type: essential hypertension Qualified Code(s): I10 - Essential (primary) hypertension (5) CAD (coronary artery disease) Current Visit: No Status: Suspected Qualifiers: Coronary Disease-Associated Artery/Lesion type: [place] artery [place] vs. transplanted heart: [place] heart Associated angina: with unstable angina Qualified Code(s): I25.110 - Atherosclerotic heart disease of [place] coronary artery with unstable angina pectoris - Constitutional Vitals: Temp Pulse Resp BP Pulse Ox 98.4 F 64 18 131/60 94 06/17/17 15:04 06/17/17 15:04 06/17/17 15:04 06/17/17 15:04 06/17/17 15:04 Internal Medicine: Result - Labs CBC & Chem 7: 06/17/17 08:28 06/17/17 00:36 Labs: Short CBC 06/17/17 Range/Units 08:28 WBC 8.4 (4.3-11.1) K/mcL Hgb 11.1 L (11.5-15.4) g/dL Hct 34.1 L (35.3-44.9) % Plt Count 124 L (140-400) K/mcL Neutrophils # 6.2 (1.6-8.9) K/mcL BMP 06/17/17 00:36 Sodium 136 Potassium 3.2 L Chloride 105 Carbon Dioxide 20 L BUN 46 H Creatinine 1.10 Glucose 140 H Calcium 7.9 L - ABG Interpretation ABG results: PT/INR, D-dimer PT 14.0 Seconds (9.4-12.1) H 06/17/17 00:36 - Attending Attestation I examined this patient and my medical decision-making was reviewed with the Resident Physician on 06/17/17. I agree with the documented findings, disposition and treatment plan as described except to the extent set forth below. Ms Gutierrez is currently admitteed for presumed acute NSTEMI. She remains moderate to high risk due to potential for worsening clinical status. Ms Gutierrez feels very weak today. No further CP or SOB. Has not been up much today. Exam Alert. Comfortable Mucus membranes dry Heart reg No wheeze Abd soft I/P 1. NSTEMI 2. A fib Anticipate d/c tomorrow. Further diagnoses and plan as above.
[2017-06-17] MEDS ORDERED: *HR* Warfarin 2 MG TABLET PO SCH (18:00)
[2017-06-17] MEDS: amLODIPine 5 MG TABLET PO SCH (22:07)
[2017-06-18 02:27] LABS: Hematocrit 30.5 % (35.3-44.9); Hemoglobin 9.8 g/dL (11.5-15.4); Mean Corpuscular HGB Conc 32.1 g/dL (31.6-35.5); Mean Corpuscular Hemoglobin 32.3 pg (28.0-33.3); Mean Corpuscular Volume 100.7 fL (83.0-100.0); Mean Platelet Volume 10.1 fL (9.4-12.4); Platelet Count 109 K/mcL (140-400); Red Blood Count 3.03 M/mcL (3.82-4.97); Red Cell Distribution Width 14.9 % (11.5-14.5)
[2017-06-18 02:30] LABS: INR 1.3; Prothrombin Time 14.6 Seconds (9.4-12.1)
[2017-06-18] MEDS: *HR* HYDROcodone/Acet 10/325 mg TABLET PO PRN (02:35)
[2017-06-18 02:55] LABS: Activated Partial Thrombo Time 121.5 Seconds (26.0-36.0)
[2017-06-18 03:01] LABS: Heparin anti-factor XA UFH 1.01 IU/mL (0.30-0.70)
[2017-06-18 03:07] LABS: BUN/Creatinine Ratio 48 (6-26); Blood Urea Nitrogen 30 mg/dL (8-23); Calcium 8.1 mg/dL (8.6-10.3); Carbon Dioxide 21 mEq/L (23-29); Chloride 111 mEq/L (98-107); Glucose 116 mg/dL (70-105); Osmolality,Calculated 295 (280-300); Potassium 3.7 mEq/L (3.5-5.1); Sodium 139 mEq/L (136-145); eGFR For African Americans > 60 (> 60); eGFR For Non-African Americans > 60 (> 60)
[2017-06-18] MEDS: Heparin 25,000 UNIT/500 ML D5W 25,000 UNIT/500 ML BAG IVC SCH (04:21)
[2017-06-18 07:54] VITALS: BP 138/60
[2017-06-18] MEDS: Metoprolol XL (24 HR) Succ 50 MG TAB.ER.24H PO SCH (10:01)
[2017-06-18] MEDS: Sucralfate 1 GM TABLET PO SCH (10:01)
--- NOTE | 2017-06-18 10:16 | Discharge Summary ---
<Robert Marquez - Last Filed: 06/18/17 11:14> Date of Encounter: 06/18/17 Time of Encounter: 10:13 - Discharge Diagnosis (1) Nausea Priority: Primary Status: Acute (2) NSTEMI (non-ST elevated myocardial infarction) Priority: Secondary Status: Acute (3) Accelerated hypertension Priority: Secondary Status: Acute (4) DVT prophylaxis Priority: Secondary Status: Acute (5) Atrial fibrillation Priority: Secondary Status: Chronic Qualifiers: Atrial fibrillation type: paroxysmal Qualified Code(s): I48.0 - Paroxysmal atrial fibrillation (6) CHF (congestive heart failure) Priority: Secondary Status: Chronic Qualifiers: Congestive heart failure type: diastolic Congestive heart failure chronicity: chronic Qualified Code(s): I50.32 - Chronic diastolic (congestive ) heart failure (7) CVA (cerebral vascular accident) Priority: Secondary Status: Chronic Qualifiers: CVA mechanism: unspecified Qualified Code(s): I63.9 - Cerebral infarction, unspecified (8) PUD (peptic ulcer disease) Priority: Secondary Status: Chronic - Discharge Medications Home Medications: Amlodipine Besylate 10 mg PO QAM 04/28/16 [History] Clopidogrel [Plavix] 75 mg PO DAILY 04/28/16 [History] Docusate Sodium [Dok] 100 mg PO BID 04/28/16 [History] Esomeprazole Magnesium [Nexium] 40 mg PO BID 04/28/16 [History] Ferrous Sulfate [Iron] 325 mg PO HS 04/28/16 [History] HYDROcodone/Acet 10/325 mg [[place] 10-325 mg] 1 tab PO Q6HR PRN 04/28/16 [History ] Irbesartan [Avapro] 300 mg PO DAILY 04/28/16 [History] Metoprolol XL (24 HR) Succ [Toprol Xl] 100 mg PO DAILY 04/28/16 [History] Rosuvastatin [Crestor] 20 mg PO HS 04/28/16 [History] Sucralfate [Carafate] 1 gm PO BID 04/28/16 [History] FentaNYL PATCH [Duragesic] 50 mcg TD Q48H 06/16/17 [History] Nitroglycerin 0.4 mg SL Q5-10MIN PRN 06/16/17 [History] Ondansetron HCl [Zofran] 4 mg PO Q6HR PRN 06/16/17 [History] Polyethylene Glycol 3350 17 gm PO DAILY 06/16/17 [History] Promethazine [Phenergan] 25 mg PO Q6HR PRN 06/16/17 [History] Warfarin [Coumadin] 1 mg PO MO 06/16/17 [History] Warfarin [Coumadin] 2 mg PO [id number] 06/16/17 [History] diazePAM [Valium] 5 mg PO HS PRN 06/16/17 [History] Allergies/Adverse Reactions: 3 Allergy/AdvReac Type Severity Reaction Status Date / Time aspirin [ASA] AdvReac Gastrointestinal Verified 06/16/17 10:05 Upset Iyhflpy-Bhn-Hfo Reductase AdvReac See Verified 06/16/17 10:05 Inhibitor Comments [Statins] Procedures/tests Complete & Pending: Procedures Performed prior 72 hours Category Date Time Status CL Cardiac Catheterization [CL] Routine [facility] 06/16/17 09:35 Completed EV limited echocardiogram Stat Y 06/15/17 12:36 Completed Date of admission: 06/15/17 12:24 Primary care physician: Emily Flaherty, Consults: 06/17/17 07:37 Consult to Cardiac Rehabilitation-Phase1 [CONS] Routine Comment: Reason for Consult: NSTEMI Call Completed: No 06/17/17 13:10 Consult to Physical Therapy [CONS] Routine Comment: Evaluate, develop and implement POC Reason for Consult: assist patient increase mobility - Patient Status Disposition: Home, Self-Care Condition: Good Functional capacity at discharge: independent ambulation Overall status at discharge: patient is progressing back to baseline - Discharge Instructions Instructions: Myocardial Infarction (DC), Atrial Fibrillation (DC), Chest Pain (DC) Follow Up With: Emily Flaherty MD [Primary Care Provider] - 06/24/17 10:40 am - Diet and Activity Activity: increase activity as tolerated Diet: low salt diet Interval History: Ms Gutierrez is a 76 yo F w/ pmh HTN, HLD, CAD, Afib, CHF, TIA/CVA, and PUD who was brought in by squad to [facility] with nausea and vomiting on 06/15/17. Patient takes zofran and phenergan for nausea at home. Patient at presentation declined fever, chest pain, sweating, jaw pain, or numbness/tingling. In the ED , troponin were elevated and was started on heparin, cardiac diet, BB for rate control, and cardiology was consulted. EKG was sinus rhythm, CT abd/pel no acute findings, CXR no acute findings, echo LVEF 35%. Due to patients history of heart disease patient was brought to the labor mediator, and no new lesions were found, and current stents were intact. Patient clinically improved and was hemodynamically stable by day 4 of hospitaliation and discharged. No medication changes were made during hospitalization. Patient discharged back home. Patient to have follow up appointment within a week. Hospital course: Ms. Gutierrez is a 76 year old female - Time Spent with Patient Total time spent providing and/or coordinating discharge services: - Constitutional Vitals: Temp Pulse Resp BP Pulse Ox 98.8 F 64 14 138/60 96 06/18/17 07:50 06/18/17 07:50 06/18/17 07:50 06/18/17 07:50 06/18/17 07:50 General appearance: Present: A&O X 3, pleasant, no acute distress, answers questions appropriately - Head Head exam: Present: atraumatic, normocephalic - Respiratory Respiratory exam: Present: CTAB. Absent: accessory muscle use, rales, rhonchi, wheezes - Cardiovascular Cardiovascular exam: Present: RRR, +S1, +S2. Absent: diastolic murmur, gallop, rubs, systolic murmur - GI/Abdominal GI/Abdominal exam: Present: normal bowel sounds, soft, no peritoneal signs. Absent: distended, tenderness <Antonio Vera - Last Filed: 06/18/17 19:44> Date of Encounter: 06/18/17 - Discharge Diagnosis (1) NSTEMI (non-ST elevated myocardial infarction) Priority: Primary Status: Acute (2) Atrial fibrillation Status: Chronic Qualifiers: Atrial fibrillation type: paroxysmal Qualified Code(s): I48.0 - Paroxysmal atrial fibrillation (3) CHF (congestive heart failure) Status: Chronic Qualifiers: Congestive heart failure type: diastolic Congestive heart failure chronicity: chronic Qualified Code(s): I50.32 - Chronic diastolic (congestive ) heart failure (4) Hypertension Priority: Secondary Status: Chronic Qualifiers: Hypertension type: essential hypertension Qualified Code(s): I10 - Essential (primary) hypertension (5) CAD (coronary artery disease) Priority: Secondary Status: Suspected Qualifiers: Coronary Disease-Associated Artery/Lesion type: [place] artery [place] vs. transplanted heart: [place] heart Associated angina: with unstable angina Qualified Code(s): I25.110 - Atherosclerotic heart disease of [place] coronary artery with unstable angina pectoris Procedures/tests Complete & Pending: Procedures Performed prior 72 hours Category Date Time Status CL Cardiac Catheterization [CL] Routine Family [facility] Justice 06/16/17 09:35 Completed Date of admission: 06/15/17 12:24 Primary care physician: Emily Flaherty, Consults: 06/17/17 07:37 Consult to Cardiac Rehabilitation-Phase1 [CONS] Routine Comment: Reason for Consult: NSTEMI Call Completed: No 06/17/17 13:10 Consult to Physical Therapy [CONS] Routine Comment: Evaluate, develop and implement POC Reason for Consult: assist patient increase mobility Hospital course: Ms. Gutierrez is a 76 year old female - Time Spent with Patient Total time spent providing and/or coordinating discharge services: 38min - Constitutional Vitals: Temp Pulse Resp BP Pulse Ox 98.8 F 64 14 138/60 96 06/18/17 07:50 06/18/17 07:50 06/18/17 07:50 06/18/17 07:50 06/18/17 07:50 - Attending Attestation I examined this patient and my medical decision-making was reviewed with the Resident Physician on 06/18/17. I agree with the documented findings, disposition and treatment plan as described except to the extent set forth below. Ms Gutierrez has been admitted for acute NSTEMI. She is afebrile with stable vitals and ready for discharge home. Exam Alert Comfortable Mucus membranes dry Heart reg No wheeze Plan d/c home today.
== END 2017-06-18 12:50 | disposition home or self-care (01) | DRG 190 ==
LOC: EMEROO 04:35 → 2NENU 04:35 → SUATTDRO 12:24
PROVIDERS: ADMIT Internal Medicine; ATTEND Internal Medicine

== ENCOUNTER 2019-08-21 16:25 | Observation (INO) ==
[2019-08-21] MEDS ORDERED: Naloxone 0.4 MG/ML INJ IVP PRN ×2 (18:10→19:24)
[2019-08-21] MEDS ORDERED: Ondansetron 4 MG/2 ML VIAL IVP PRN (19:24)
[2019-08-21] MEDS ORDERED: D5% in Water 1,000 ML IVC PRN (19:25)
[2019-08-21] MEDS ORDERED: *HR* Dextrose 50 % in Water (Syg) 50 ML SYRINGE IVP PRN (19:25)
[2019-08-21] MEDS ORDERED: Dextrose Gel 15 GM/37.5 ML TUBE PO PRN ×2 (19:25)
[2019-08-21] MEDS ORDERED: diazePAM 5 MG TABLET PO PRN (19:26)
[2019-08-21] MEDS ORDERED: Nitroglycerin 0.4 MG TAB.SUBL SL PRN (19:26)
[2019-08-21] MEDS ORDERED: 0.9 % Sodium Chloride 1,000 ML IVC SCH (19:30)
[2019-08-21] MEDS ORDERED: *HR* FentaNYL PATCH 50 MCG PATCH TD SCH (19:30)
[2019-08-21 19:33] LABS: INR 3.1; Prothrombin Time 35.5 Seconds (9.4-12.1)
[2019-08-21] MEDS ORDERED: *HR* Metoprolol 5 MG/5 ML VIAL IVP PRN (19:44)
[2019-08-21 19:48] LABS: Magnesium 2.1 mg/dL (1.6-2.6); Phosphorous 2.4 mg/dL (2.7-4.5)
[2019-08-21 19:50] LABS: Troponin I 0.13 ng/mL (< 0.04)
[2019-08-21 20:10] LABS: Thyroid Stimulating Hormone 4.113 mcIU/mL (0.340-5.600)
[2019-08-21] MEDS: Insulin LISPRO 300 UNITS/3 ML VIAL SQ SCH (20:54)
[2019-08-21] MEDS: Sucralfate 1 GM TABLET PO SCH (20:54)
[2019-08-22] MEDS: *HR* HYDROcodone/Acet 10/325 mg TABLET PO PRN ×4 (04:02→23:14)
[2019-08-22 04:34] LABS: INR 3.1; Prothrombin Time 35.4 Seconds (9.4-12.1)
[2019-08-22 04:35] LABS: Immature Granulocytes % 0.2 % (0-4)
[2019-08-22 04:37] LABS: Basophils % 0.4 %; Eosinophils % 0.7 %; Hemoglobin 10.1 g/dL (11.5-15.4); Immature Platelets 5.7 % (1.1-6.1); Lymphocytes # 1.4 K/mcL (0.6-4.6); Lymphocytes % 31.2 %; Mean Corpuscular HGB Conc 30.6 g/dL (31.6-35.5); Mean Corpuscular Hemoglobin 32.5 pg (28.0-33.3); Mean Corpuscular Volume 106.1 fL (83.0-100.0); Mean Platelet Volume 10.9 fL (9.4-12.4); Monocytes # 0.4 K/mcL (0.0-1.3); Monocytes % 8.5 %; Red Blood Count 3.11 M/mcL (3.82-4.97); Red Cell Distribution Width 14.4 % (11.5-14.5); White Blood Count 4.5 K/mcL (4.3-11.1)
[2019-08-22 04:43] LABS: BUN/Creatinine Ratio 22 (6-26); Blood Urea Nitrogen 14 mg/dL (8-23); Calcium 8.1 mg/dL (8.6-10.3); Carbon Dioxide 24 mEq/L (23-29); Chloride 109 mEq/L (98-107); Glucose 121 mg/dL (70-105); Osmolality,Calculated 288 (280-300); Potassium 4.1 mEq/L (3.5-5.1); Sodium 138 mEq/L (136-145); eGFR For African Americans > 60 (> 60); eGFR For Non-African Americans > 60 (> 60)
[2019-08-22 05:21] LABS: Neutrophils # 2.7 K/mcL (1.6-8.9); Platelet Count 97 K/mcL (140-400)
[2019-08-22] MEDS: Sucralfate 1 GM TABLET PO SCH ×4 (06:07→23:14)
[2019-08-22] MEDS: Insulin LISPRO 300 UNITS/3 ML VIAL SQ SCH ×4 (07:25→21:57)
[2019-08-22] MEDS: Metoprolol XL (24 HR) Succ 50 MG TAB.ER.24H PO SCH (07:42)
[2019-08-22] MEDS: Furosemide 20 MG TABLET PO SCH (07:42)
[2019-08-22] MEDS ORDERED: carvediloL 6.25 MG TABLET PO SCH (08:00)
[2019-08-22] MEDS ORDERED: amLODIPine 5 MG TABLET PO SCH (09:00)
[2019-08-22] MEDS ORDERED: Nitroglycerin 0.4 MG TAB.SUBL SL PRN (12:13)
[2019-08-22] MEDS ORDERED: *HR* Amiodarone 200 MG TABLET PO SCH (14:00)
[2019-08-22] MEDS ORDERED: *HR* Warfarin 1 MG TABLET PO ONE (18:00)
[2019-08-22] MEDS ORDERED: Warfarin perPT PO PRN (18:00)
[2019-08-22] MEDS ORDERED: traZODone 50 MG TABLET PO SCH (21:00)
[2019-08-23 01:43] LABS: INR 2.8; Prothrombin Time 31.8 Seconds (9.4-12.1)
[2019-08-23] MEDS: Sucralfate 1 GM TABLET PO SCH (06:05)
[2019-08-23 07:36] VITALS: BP 109/61
[2019-08-23] MEDS: Insulin LISPRO 300 UNITS/3 ML VIAL SQ SCH (07:40)
[2019-08-23] MEDS: Furosemide 20 MG TABLET PO SCH (08:16)
[2019-08-23] MEDS: Metoprolol XL (24 HR) Succ 50 MG TAB.ER.24H PO SCH (08:16)
[2019-08-23] MEDS ORDERED: allopurinoL 300 MG TABLET PO SCH (09:00)
[2019-08-23] MEDS: *HR* HYDROcodone/Acet 10/325 mg TABLET PO PRN (09:58)
[2019-08-23 13:12] LABS: Estimated Average Glucose 128 mg/dl
== END 2019-08-23 11:32 | disposition home or self-care (01) ==
LOC: 2ANU → SUATTDRO 17:44
PROVIDERS: ADMIT Internal Medicine; ATTEND Family Medicine

== ENCOUNTER 2019-11-20 11:10 | Inpatient (IN) ==
[2019-11-20] MEDS ORDERED: Ondansetron ODT 4 MG TAB.RAPDIS SL ONE (11:19)
[2019-11-20] MEDS ORDERED: Ondansetron 4 MG/2 ML VIAL IVP STA (11:29)
[2019-11-20] MEDS ORDERED: Amiodarone Premix 150 MG/100 ML BAG IVPB ONE (11:32)
[2019-11-20] MEDS ORDERED: 0.9 % Sodium Chloride 500 ML IVC ONE (11:43)
[2019-11-20] MEDS ORDERED: Isovue-370 500 ML BOTTLE IVP ONE (11:44)
[2019-11-20 11:58] LABS: Basophils % 0.3 %; Eosinophils % 0.1 %; Hematocrit 41.7 % (35.3-44.9); Hemoglobin 12.9 g/dL (11.5-15.4); Immature Granulocytes % 0.8 % (0-4); Lymphocytes # 1.7 K/mcL (0.6-4.6); Lymphocytes % 23.6 %; Mean Corpuscular HGB Conc 30.9 g/dL (31.6-35.5); Mean Corpuscular Hemoglobin 32.6 pg (28.0-33.3); Mean Corpuscular Volume 105.3 fL (83.0-100.0); Mean Platelet Volume 10.5 fL (9.4-12.4); Monocytes # 0.4 K/mcL (0.0-1.3); Monocytes % 5.6 %; Platelet Count 181 K/mcL (140-400); Red Blood Count 3.96 M/mcL (3.82-4.97); Red Cell Distribution Width 14.7 % (11.5-14.5); Segmented Neutrophils % 69.6 %; White Blood Count 7.1 K/mcL (4.3-11.1)
[2019-11-20 12:06] LABS: INR 2.4; Prothrombin Time 27.1 Seconds (9.4-12.1)
[2019-11-20 12:21] LABS: BUN/Creatinine Ratio 30 (6-26); Blood Urea Nitrogen 22 mg/dL (8-23); Calcium 8.9 mg/dL (8.6-10.3); Carbon Dioxide 27 mEq/L (23-29); Chloride 102 mEq/L (98-107); Glucose 165 mg/dL (70-105); Lipase 16 Units/L (11-82); Magnesium 1.7 mg/dL (1.6-2.6); Osmolality,Calculated 293 (280-300); Potassium 4.5 mEq/L (3.5-5.1); Sodium 138 mEq/L (136-145); Troponin I 0.03 ng/mL (< 0.04); eGFR For African Americans > 60 (> 60); eGFR For Non-African Americans > 60 (> 60)
[2019-11-20] MEDS ORDERED: *HR* Promethazine 25 MG/ML VIAL IVP ONE (12:41)
[2019-11-20] MEDS ORDERED: Promethazine 25 MG in 0.9 % Sodium Chloride 50 ML IVPB ONE (13:00)
[2019-11-20] MEDS ORDERED: *HR* LORazepam 2 MG/ML VIAL IVP ONE ×2 (14:22→14:53)
[2019-11-20] MEDS ORDERED: *HR* LORazepam 2 MG/ML VIAL ONE (14:23)
[2019-11-20] MEDS ORDERED: Haloperidol Lactate 5 MG/ML VIAL IVP ONE ×2 (15:44→21:05)
[2019-11-20] MEDS: DilTIAZem 50 MG/50 ML IV.SOLN IVC SCH ×3 (16:00→23:36)
[2019-11-20 16:26] LABS: VBG HCO3 24 mEq/L (21-27); VBG PCO2 54 mmHg (41-51); VBG PH 7.25 pH Units (7.32-7.42); VBG PO2 41 mmHg (25-50)
[2019-11-20] MEDS ORDERED: Ziprasidone 20 MG in Water for inj. (sterile) 1 ML IM ONE (16:35)
[2019-11-20 17:27] LABS: Bacteria,Urine Few per hpf (None-Few); Bilirubin,Urine Negative (Negative); Blood,Urine Negative (Negative); Clarity,Urine Clear (Clear); Color,Urine Light-Yellow (Yellow); Glucose,Urine (UA) Normal (Normal); Ketones,Urine Negative (Negative); Leukocyte Esterase,Urine Negative (Negative); Mucus,Urine Few per lpf (None-Few); Nitrite,Urine Negative (Negative); Protein,Urine >=300 mg/dL (Neg-Trace); RBC,Urine 0-3 per hpf (0-3); Specific Gravity,Urine > 1.030 (1.010-1.025); Urobilinogen,Urine Normal (Normal)
[2019-11-20] MEDS ORDERED: 0.9 % Sodium Chloride 1,000 ML IVC ONE (17:30)
[2019-11-20] MEDS ORDERED: Acetaminophen 325 MG TABLET PO PRN (17:39)
[2019-11-20] MEDS ORDERED: Naloxone 0.4 MG/ML INJ IVP PRN (17:39)
[2019-11-20] MEDS ORDERED: Ondansetron 4 MG/2 ML VIAL IVP PRN (17:39)
[2019-11-20 18:05] LABS: Amphetamine Screen,Urine Negative ng/mL (Cutoff=1000); Barbiturate Screen,Urine Negative ng/mL (Cutoff=200); Benzodiazepines Screen,Urine Negative ng/mL (Cutoff=200); Cannabinoid Screen,Urine Negative ng/mL (Cutoff = 50); Cocaine Screen,Urine Negative ng/mL (Cutoff= 300); Opiate Screen,Urine Positive ng/mL (Cutoff=300); Phencyclidine Screen,Urine Negative ng/mL (Cutoff=25)
[2019-11-20] MEDS ORDERED: Nitroglycerin 0.4 MG TAB.SUBL SL PRN (18:41)
[2019-11-20] MEDS ORDERED: *HR* HYDROcodone/Acet 10/325 mg TABLET PO PRN (18:41)
[2019-11-20] MEDS ORDERED: Ringers Solution, Lactated 1,000 ML IVC SCH (18:45)
[2019-11-20] MEDS ORDERED: *HR* FentaNYL PATCH 50 MCG PATCH TD SCH (18:45)
[2019-11-20] MEDS: 0.9 % Sodium Chloride 1,000 ML IVC SCH (21:23)
[2019-11-21 02:01] LABS: Hematocrit 34.7 % (35.3-44.9); Immature Granulocytes % 0.5 % (0-4); Lymphocytes # 1.2 K/mcL (0.6-4.6); Lymphocytes % 14.8 %; Mean Corpuscular HGB Conc 32.3 g/dL (31.6-35.5); Mean Corpuscular Volume 105.5 fL (83.0-100.0); Mean Platelet Volume 10.5 fL (9.4-12.4); Monocytes # 0.7 K/mcL (0.0-1.3); Neutrophils # 6.4 K/mcL (1.6-8.9); Platelet Count 134 K/mcL (140-400); Red Blood Count 3.29 M/mcL (3.82-4.97); Red Cell Distribution Width 14.8 % (11.5-14.5); Segmented Neutrophils % 76.7 %; White Blood Count 8.4 K/mcL (4.3-11.1)
[2019-11-21 02:02] LABS: Hemoglobin 11.2 g/dL (11.5-15.4)
[2019-11-21 02:16] LABS: BUN/Creatinine Ratio 31 (6-26); Blood Urea Nitrogen 21 mg/dL (8-23); Calcium 8.2 mg/dL (8.6-10.3); Carbon Dioxide 22 mEq/L (23-29); Chloride 106 mEq/L (98-107); Glucose 115 mg/dL (70-105); Magnesium 1.5 mg/dL (1.6-2.6); Osmolality,Calculated 290 (280-300); Potassium 4.6 mEq/L (3.5-5.1); Sodium 138 mEq/L (136-145); eGFR For African Americans > 60 (> 60); eGFR For Non-African Americans > 60 (> 60)
[2019-11-21] MEDS ORDERED: Haloperidol Lactate 5 MG/ML VIAL IVP ONE (02:48)
[2019-11-21] MEDS ORDERED: *HR* LORazepam 2 MG/ML VIAL IVP ONE (02:53)
[2019-11-21 08:38] LABS: INR 2.4
[2019-11-21] MEDS: allopurinoL 300 MG TABLET PO SCH (08:44)
[2019-11-21] MEDS: *HR* Amiodarone 200 MG TABLET PO SCH (08:44)
[2019-11-21] MEDS ORDERED: Metoprolol XL (24 HR) Succ 50 MG TAB.ER.24H PO SCH (09:00)
[2019-11-21 09:03] LABS: Triiodothyronine (T3) Free 2.17 pg/mL (2.50-3.90)
[2019-11-21] MEDS: 0.9 % Sodium Chloride 1,000 ML IVC SCH ×2 (10:23→23:16)
[2019-11-21] MEDS ORDERED: Morphine Sulfate 2 MG/ML SYRINGE IVP ONE (15:33)
[2019-11-21] MEDS ORDERED: *HR* Warfarin 1 MG TABLET PO ONE (18:00)
[2019-11-21] MEDS ORDERED: Warfarin perPT PO PRN (18:00)
[2019-11-21] MEDS ORDERED: *HR* OxyCODONE Immed Rel 5 MG TABLET PO ONE (23:17)
[2019-11-22 06:34] LABS: Basophils % 0.1 %; Hematocrit 32.6 % (35.3-44.9); Hemoglobin 10.4 g/dL (11.5-15.4); Immature Granulocytes % 0.5 % (0-4); Lymphocytes # 0.8 K/mcL (0.6-4.6); Lymphocytes % 10.2 %; Mean Corpuscular HGB Conc 31.9 g/dL (31.6-35.5); Mean Corpuscular Hemoglobin 33.8 pg (28.0-33.3); Mean Corpuscular Volume 105.8 fL (83.0-100.0); Mean Platelet Volume 11.3 fL (9.4-12.4); Monocytes # 0.5 K/mcL (0.0-1.3); Neutrophils # 6.2 K/mcL (1.6-8.9); Platelet Count 128 K/mcL (140-400); Red Blood Count 3.08 M/mcL (3.82-4.97); Red Cell Distribution Width 15.2 % (11.5-14.5); Segmented Neutrophils % 82.2 %; White Blood Count 7.5 K/mcL (4.3-11.1)
[2019-11-22 06:41] LABS: INR 2.8; Prothrombin Time 31.7 Seconds (9.4-12.1)
[2019-11-22] MEDS ORDERED: *HR* OxyCODONE Immed Rel 5 MG TABLET PO ONE (06:52)
[2019-11-22 06:53] LABS: BUN/Creatinine Ratio 33 (6-26); Blood Urea Nitrogen 21 mg/dL (8-23); Calcium 8.2 mg/dL (8.6-10.3); Carbon Dioxide 23 mEq/L (23-29); Chloride 109 mEq/L (98-107); Glucose 116 mg/dL (70-105); Osmolality,Calculated 292 (280-300); Potassium 4.3 mEq/L (3.5-5.1); Sodium 139 mEq/L (136-145); eGFR For African Americans > 60 (> 60); eGFR For Non-African Americans > 60 (> 60)
[2019-11-22 06:55] VITALS: BP 170/81
[2019-11-22] MEDS: allopurinoL 300 MG TABLET PO SCH (07:49)
[2019-11-22] MEDS: *HR* Amiodarone 200 MG TABLET PO SCH (07:49)
== END 2019-11-22 11:10 | disposition home or self-care (01) | DRG 308 ==
LOC: EMEROOARM 11:10 → 2ANU 11:10 → SUATTDRO 17:48 → 2ANU 18:29
PROVIDERS: ADMIT Pharmacist; ATTEND Family Medicine

== ENCOUNTER 2020-03-28 19:32 | Observation (INO) ==
[2020-03-28 20:50] LABS: Basophils % 0.3 %; Eosinophils # 0.2 K/mcL (0.0-0.6); Eosinophils % 3.1 %; Hematocrit 36.5 % (35.3-44.9); Hemoglobin 11.7 g/dL (11.5-15.4); Immature Granulocytes % 0.5 % (0-4); Immature Platelets 4.5 % (1.1-6.1); Lymphocytes % 16.7 %; Mean Corpuscular HGB Conc 32.1 g/dL (31.6-35.5); Mean Corpuscular Hemoglobin 35.2 pg (28.0-33.3); Mean Corpuscular Volume 109.9 fL (83.0-100.0); Mean Platelet Volume 9.9 fL (9.4-12.4); Monocytes # 0.3 K/mcL (0.0-1.3); Monocytes % 4.6 %; Neutrophils # 4.4 K/mcL (1.6-8.9); Platelet Count 104 K/mcL (140-400); Red Blood Count 3.32 M/mcL (3.82-4.97); Red Cell Distribution Width 14.1 % (11.5-14.5); Segmented Neutrophils % 74.8 %; White Blood Count 5.8 K/mcL (4.3-11.1)
[2020-03-28 21:04] LABS: INR 1.2; Prothrombin Time 13.5 Seconds (9.4-12.1)
[2020-03-28 21:05] LABS: Activated Partial Thrombo Time 26.4 Seconds (26.0-36.0)
[2020-03-28 21:09] LABS: Alanine Aminotransferase 11 Units/L (7-52); Albumin 4.6 g/dL (3.5-5.7); Albumin/Globulin Ratio 1.3 (1.1-2.2); Alkaline Phosphatase 94 Units/L (34-104); Aspartate Amino Transferase 19 Units/L (13-39); BUN/Creatinine Ratio 22 (6-26); Bilirubin,Direct 0.1 mg/dL (0.0-0.2); Bilirubin,Indirect 0.4 mg/dL (0.0-1.0); Bilirubin,Total 0.5 mg/dL (0.3-1.0); Blood Urea Nitrogen 15 mg/dL (8-23); C-Reactive Protein 20 mg/L (Less than 10); Calcium 9.1 mg/dL (8.6-10.3); Carbon Dioxide 29 mEq/L (23-29); Chloride 101 mEq/L (98-107); Globulin 3.6 g/dL (2.4-3.5); Glucose 104 mg/dL (70-105); Lactate Dehydrogenase 204 Units/L (140-271); Magnesium 1.5 mg/dL (1.6-2.6); Osmolality,Calculated 293 (280-300); Sodium 141 mEq/L (136-145); Total Protein 8.2 g/dL (6.4-8.9); Troponin I < 0.03 ng/mL (< 0.04); eGFR For African Americans > 60 (> 60); eGFR For Non-African Americans > 60 (> 60)
[2020-03-28] MEDS ORDERED: Ondansetron 4 MG/2 ML VIAL IVP ONE (21:22)
[2020-03-28 21:28] LABS: Ferritin 58 ng/mL (10-120)
[2020-03-28] MEDS ORDERED: Morphine Sulfate 2 MG/ML SYRINGE IVP ONE (22:10)
[2020-03-28] MEDS ORDERED: 0.9 % Sodium Chloride 1,000 ML IVC ONE (22:17)
[2020-03-28] MEDS ORDERED: *HR* FentaNYL (PF) 100 MCG/2 ML VIAL IVP ONE (22:55)
[2020-03-28] MEDS ORDERED: cefTRIAXone 1,000 MG in Water for inj. (sterile) 10 ML IVP ONE (23:59)
[2020-03-28] MEDS ORDERED: Azithromycin 500 MG in 0.9 % Sodium Chloride 250 ML IVPB ONE (23:59)
[2020-03-29] MEDS ORDERED: *HR* HYDROmorphone (PF) 1 MG/ML SYRINGE IVP ONE (00:11)
[2020-03-29] MEDS ORDERED: Ondansetron 4 MG/2 ML VIAL IVP PRN (01:46)
[2020-03-29] MEDS ORDERED: Naloxone 0.4 MG/ML INJ IVP PRN (01:46)
[2020-03-29] MEDS ORDERED: Mirtazapine 15 MG TABLET PO PRN (04:21)
[2020-03-29] MEDS ORDERED: Acetaminophen IV 1,000 MG/100 ML INFUS..BTL IVPB ONE (04:25)
[2020-03-29] MEDS ORDERED: *HR* Promethazine 25 MG/ML VIAL IM ONE (04:31)
[2020-03-29 05:25] LABS: Bacteria,Urine Few per hpf (None-Few); Bilirubin,Urine Negative (Negative); Blood,Urine Negative (Negative); Clarity,Urine Clear (Clear); Color,Urine Colorless (Yellow); Glucose,Urine (UA) Normal (Normal); Ketones,Urine Negative (Negative); Leukocyte Esterase,Urine Negative (Negative); Nitrite,Urine Negative (Negative); PH,Urine 6.5 pH Units (5.0-8.0); Protein,Urine 50 mg/dL (Neg-Trace); RBC,Urine 0-3 per hpf (0-3); Specific Gravity,Urine 1.013 (1.010-1.025); Urobilinogen,Urine Normal (Normal); WBC,Urine 0-3 per hpf (0-3)
[2020-03-29 06:29] LABS: Basophils % 0.1 %; Immature Granulocytes % 0.4 % (0-4); Red Cell Distribution Width 13.9 % (11.5-14.5)
[2020-03-29 06:30] LABS: Hematocrit 34.1 % (35.3-44.9); Hemoglobin 11.1 g/dL (11.5-15.4); Immature Platelets 4.4 % (1.1-6.1); Lymphocytes # 1.1 K/mcL (0.6-4.6); Lymphocytes % 14.9 %; Mean Corpuscular HGB Conc 32.6 g/dL (31.6-35.5); Mean Corpuscular Volume 110.7 fL (83.0-100.0); Mean Platelet Volume 10.5 fL (9.4-12.4); Monocytes # 0.2 K/mcL (0.0-1.3); Monocytes % 2.6 %; Neutrophils # 6.1 K/mcL (1.6-8.9); Platelet Count 100 K/mcL (140-400); Red Blood Count 3.08 M/mcL (3.82-4.97); White Blood Count 7.4 K/mcL (4.3-11.1)
[2020-03-29] MEDS ORDERED: Potassium Chloride 40 MEQ, Lidocaine 1% 2 ML in 0.9 % Sodium Chloride 500 ML IVPB ONE (06:50)
[2020-03-29 06:53] LABS: Alanine Aminotransferase 10 Units/L (7-52); Albumin 4.4 g/dL (3.5-5.7); Albumin/Globulin Ratio 1.4 (1.1-2.2); Alkaline Phosphatase 78 Units/L (34-104); Aspartate Amino Transferase 19 Units/L (13-39); BUN/Creatinine Ratio 20 (6-26); Bilirubin,Total 0.5 mg/dL (0.3-1.0); Blood Urea Nitrogen 11 mg/dL (8-23); Calcium 9.1 mg/dL (8.6-10.3); Carbon Dioxide 25 mEq/L (23-29); Chloride 102 mEq/L (98-107); Globulin 3.2 g/dL (2.4-3.5); Glucose 150 mg/dL (70-105); Magnesium 1.3 mg/dL (1.6-2.6); Osmolality,Calculated 294 (280-300); Phosphorous 2.6 mg/dL (2.7-4.5); Sodium 141 mEq/L (136-145); Total Protein 7.6 g/dL (6.4-8.9); eGFR For African Americans > 60 (> 60); eGFR For Non-African Americans > 60 (> 60)
[2020-03-29 07:01] LABS: Macrocytosis Present (Not Present); Platelet Estimate Decreased (Normal)
[2020-03-29] MEDS ORDERED: *HR* Promethazine 25 MG/ML VIAL IM PRN (07:23)
[2020-03-29] MEDS: allopurinoL 300 MG TABLET PO SCH (08:06)
[2020-03-29] MEDS: Apixaban 5 MG TABLET PO SCH ×2 (08:06→20:57)
[2020-03-29] MEDS: amLODIPine 5 MG TABLET PO SCH (08:07)
[2020-03-29] MEDS: Metoprolol XL (24 HR) Succ 50 MG TAB.ER.24H PO SCH (08:07)
[2020-03-29] MEDS: *HR* Amiodarone 200 MG TABLET PO SCH (08:07)
[2020-03-29] MEDS: Furosemide 40 MG TABLET PO SCH (08:07)
[2020-03-29] MEDS: Aspirin Enteric Coated 81 MG Tablet PO SCH (08:09)
[2020-03-29] MEDS ORDERED: Acetaminophen 325 MG TABLET PO PRN (08:40)
[2020-03-29] MEDS: (Plecanatide [Trulance] 3 MG) PO SCH (08:54)
[2020-03-29] MEDS: Indomethacin 25 MG CAPSULE PO SCH ×2 (11:39→16:34)
[2020-03-29] MEDS: Famotidine 20 MG TABLET PO SCH ×2 (11:39→20:57)
[2020-03-30 04:28] LABS: Basophils % 0.3 %; Eosinophils % 0.1 %
[2020-03-30 04:30] LABS: Hematocrit 29.5 % (35.3-44.9); Hemoglobin 9.5 g/dL (11.5-15.4); Immature Granulocytes % 0.5 % (0-4); Immature Platelets 4.3 % (1.1-6.1); Lymphocytes # 0.7 K/mcL (0.6-4.6); Lymphocytes % 9.2 %; Mean Corpuscular HGB Conc 32.2 g/dL (31.6-35.5); Mean Corpuscular Hemoglobin 36.1 pg (28.0-33.3); Mean Corpuscular Volume 112.2 fL (83.0-100.0); Mean Platelet Volume 11.6 fL (9.4-12.4); Monocytes # 0.3 K/mcL (0.0-1.3); Monocytes % 3.6 %; Red Blood Count 2.63 M/mcL (3.82-4.97); Red Cell Distribution Width 13.7 % (11.5-14.5); Segmented Neutrophils % 86.3 %; White Blood Count 7.6 K/mcL (4.3-11.1)
[2020-03-30 04:34] LABS: Neutrophils # 6.6 K/mcL (1.6-8.9); Platelet Count 88 K/mcL (140-400)
[2020-03-30 04:47] LABS: BUN/Creatinine Ratio 23 (6-26); Blood Urea Nitrogen 19 mg/dL (8-23); Calcium 8.3 mg/dL (8.6-10.3); Carbon Dioxide 28 mEq/L (23-29); Chloride 102 mEq/L (98-107); Glucose 103 mg/dL (70-105); Osmolality,Calculated 291 (280-300); Sodium 139 mEq/L (136-145); eGFR For African Americans > 60 (> 60); eGFR For Non-African Americans > 60 (> 60)
[2020-03-30 05:14] LABS: Hypochromasia Present (Not Present); Platelet Estimate Decreased (Normal)
[2020-03-30] MEDS ORDERED: Nitrofurantoin (BID) 100 MG CAPSULE PO SCH (08:04)
[2020-03-30] MEDS: Metoprolol XL (24 HR) Succ 50 MG TAB.ER.24H PO SCH (08:29)
[2020-03-30] MEDS: Aspirin Enteric Coated 81 MG Tablet PO SCH (08:29)
[2020-03-30] MEDS: Apixaban 5 MG TABLET PO SCH (08:29)
[2020-03-30] MEDS: amLODIPine 5 MG TABLET PO SCH (08:29)
[2020-03-30] MEDS: Furosemide 40 MG TABLET PO SCH (08:29)
[2020-03-30] MEDS: Indomethacin 25 MG CAPSULE PO SCH ×2 (08:29→11:39)
[2020-03-30] MEDS: allopurinoL 300 MG TABLET PO SCH (08:29)
[2020-03-30] MEDS: *HR* Amiodarone 200 MG TABLET PO SCH (08:29)
[2020-03-30] MEDS: Famotidine 20 MG TABLET PO SCH (08:29)
[2020-03-30] MEDS: (Plecanatide [Trulance] 3 MG) PO SCH (08:30)
[2020-03-30 08:51] VITALS: BP 141/68
[2020-03-30] MEDS ORDERED: Potassium Chloride Elixir 20 MEQ/15 ML UDC PO SCH (09:00)
[2020-03-31] MEDS ORDERED: Metoprolol XL (24 HR) Succ 50 MG TAB.ER.24H PO SCH (09:00)
== END 2020-03-30 15:39 | disposition home or self-care (01) ==
LOC: EMEROOARM 19:32 → 2NENU 19:32 → SUATTDRO 03-29 00:40 → 2NENU 03-29 01:40
PROVIDERS: ADMIT Internal Medicine; ATTEND Internal Medicine

== ENCOUNTER 2020-04-03 06:08 | Inpatient (IN) ==
[2020-04-03] MEDS ORDERED: 0.9 % Sodium Chloride 1,000 ML IVC ONE (06:25)
[2020-04-03] MEDS ORDERED: Ondansetron 4 MG/2 ML VIAL IVP ONE ×3 (06:36→11:15)
[2020-04-03] MEDS ORDERED: *HR* Promethazine 25 MG/ML VIAL IM ONE (07:53)
[2020-04-03 07:59] LABS: Basophils % 0.6 %; Eosinophils % 0.2 %; Lymphocytes # 0.6 K/mcL (0.6-4.6); Lymphocytes % 13.1 %; Mean Corpuscular HGB Conc 31.7 g/dL (31.6-35.5); Mean Corpuscular Hemoglobin 35.5 pg (28.0-33.3); Mean Corpuscular Volume 111.8 fL (83.0-100.0); Mean Platelet Volume 11.7 fL (9.4-12.4); Monocytes # 0.2 K/mcL (0.0-1.3); Monocytes % 3.3 %; Platelet Count 147 K/mcL (140-400); Red Blood Count 3.13 M/mcL (3.82-4.97); Segmented Neutrophils % 81.8 %; White Blood Count 4.9 K/mcL (4.3-11.1)
[2020-04-03 08:12] LABS: Hemoglobin 11.1 g/dL (11.5-15.4)
[2020-04-03] MEDS ORDERED: Morphine Sulfate 2 MG/ML SYRINGE IVP STA (08:13)
[2020-04-03 08:49] LABS: Anisocytosis 1+ (Not Present); Macrocytosis Present (Not Present)
[2020-04-03 08:51] LABS: Platelet Estimate Slight Decrease (Normal)
[2020-04-03 09:14] LABS: Alanine Aminotransferase 11 Units/L (7-52); Albumin 3.9 g/dL (3.5-5.7); Albumin/Globulin Ratio 1.1 (1.1-2.2); Alkaline Phosphatase 90 Units/L (34-104); Aspartate Amino Transferase 30 Units/L (13-39); BUN/Creatinine Ratio 32 (6-26); Bilirubin,Total 0.4 mg/dL (0.3-1.0); Blood Urea Nitrogen 28 mg/dL (8-23); Carbon Dioxide 25 mEq/L (23-29); Chloride 102 mEq/L (98-107); Glucose 209 mg/dL (70-105); Osmolality,Calculated 302 (280-300); Potassium 3.8 mEq/L (3.5-5.1); Sodium 140 mEq/L (136-145); Total Protein 7.4 g/dL (6.4-8.9); eGFR For African Americans > 60 (> 60); eGFR For Non-African Americans > 60 (> 60)
[2020-04-03 09:15] LABS: Globulin 3.5 g/dL (2.4-3.5)
[2020-04-03 09:30] LABS: Bilirubin,Urine Negative (Negative); Blood,Urine Negative (Negative); Clarity,Urine Clear (Clear); Color,Urine Yellow (Yellow); Glucose,Urine (UA) Normal (Normal); Hyaline Casts,Urine Few per lpf (None Seen); Ketones,Urine Negative (Negative); Leukocyte Esterase,Urine Negative (Negative); Nitrite,Urine Negative (Negative); Protein,Urine 30 mg/dL (Neg-Trace); Specific Gravity,Urine 1.018 (1.010-1.025); Urobilinogen,Urine Normal (Normal); WBC,Urine 0-3 per hpf (0-3)
[2020-04-03] MEDS ORDERED: *HR* FentaNYL (PF) 100 MCG/2 ML VIAL IVP ONE ×2 (09:43→11:15)
[2020-04-03] MEDS ORDERED: Piperacillin/Tazobactam 3.375 GM in 0.9 % Sodium Chloride Mini Bag 100 ML IVPB ONE (10:10)
[2020-04-03] MEDS ORDERED: cefTRIAXone 1,000 MG in 0.9 % Sodium Chloride Mini Bag 100 ML IVPB ONE (10:12)
[2020-04-03] MEDS ORDERED: *HR* Promethazine 25 MG/ML VIAL IM PRN (13:06)
[2020-04-03] MEDS ORDERED: Naloxone 0.4 MG/ML INJ IVP PRN (13:06)
[2020-04-03] MEDS ORDERED: Amiodarone Premix 150 MG/100 ML BAG IVPB ONE (15:49)
[2020-04-03] MEDS ORDERED: Amiodarone Premix 360 MG/200 ML BAG IVC ONE (15:49)
[2020-04-03] MEDS ORDERED: Metoclopramide 10 MG/2 ML VIAL IVP ONE (15:51)
[2020-04-03] MEDS: Ringers Solution, Lactated 1,000 ML IVC SCH (16:27)
[2020-04-03] MEDS: *HR* FentaNYL PATCH 50 MCG PATCH TD SCH (17:04)
[2020-04-03] MEDS ORDERED: Morphine Sulfate 2 MG/ML SYRINGE IVP ONE (17:06)
[2020-04-03] MEDS ORDERED: Isovue-370 500 ML BOTTLE IVP ONE (17:23)
[2020-04-03] MEDS: Pantoprazole 40 MG VIAL IVP SCH (18:17)
[2020-04-03] MEDS: *HR* Enoxaparin 80 MG/0.8 ML SYRINGE SQ SCH (18:17)
[2020-04-03] MEDS: Doxycycline 100 MG in 0.9 % Sodium Chloride Mini Bag 100 ML IVPB SCH (19:39)
[2020-04-03] MEDS ORDERED: Apixaban 5 MG TABLET PO SCH (21:00)
[2020-04-03] MEDS: Amiodarone Premix 360 MG/200 ML BAG IVC SCH (23:52)
[2020-04-04] MEDS: Amiodarone Premix 360 MG/200 ML BAG IVC SCH ×3 (00:44→22:46)
[2020-04-04 04:47] LABS: Basophils % 0.4 %; Hematocrit 31.1 % (35.3-44.9); Immature Granulocytes % 1.7 % (0-4); Lymphocytes # 1.3 K/mcL (0.6-4.6); Lymphocytes % 24.5 %; Mean Corpuscular HGB Conc 32.2 g/dL (31.6-35.5); Mean Corpuscular Hemoglobin 36.2 pg (28.0-33.3); Mean Corpuscular Volume 112.7 fL (83.0-100.0); Mean Platelet Volume 11.9 fL (9.4-12.4); Monocytes # 0.5 K/mcL (0.0-1.3); Monocytes % 9.1 %; Neutrophils # 3.4 K/mcL (1.6-8.9); Platelet Count 129 K/mcL (140-400); Red Blood Count 2.76 M/mcL (3.82-4.97); Red Cell Distribution Width 14.2 % (11.5-14.5); Segmented Neutrophils % 64.3 %; White Blood Count 5.3 K/mcL (4.3-11.1)
[2020-04-04 05:06] LABS: BUN/Creatinine Ratio 32 (6-26); Blood Urea Nitrogen 25 mg/dL (8-23); Calcium 8.7 mg/dL (8.6-10.3); Carbon Dioxide 21 mEq/L (23-29); Chloride 105 mEq/L (98-107); Glucose 152 mg/dL (70-105); Osmolality,Calculated 293 (280-300); Potassium 4.3 mEq/L (3.5-5.1); Sodium 138 mEq/L (136-145); eGFR For African Americans > 60 (> 60); eGFR For Non-African Americans > 60 (> 60)
[2020-04-04 05:22] LABS: Anisocytosis 1+ (Not Present); Macrocytosis Present (Not Present); Platelet Estimate Slight Decrease (Normal)
[2020-04-04] MEDS: Pantoprazole 40 MG VIAL IVP SCH ×2 (05:48→17:08)
[2020-04-04] MEDS: *HR* Enoxaparin 80 MG/0.8 ML SYRINGE SQ SCH ×2 (05:49→17:10)
[2020-04-04] MEDS: cefTRIAXone 1,000 MG in Water for inj. (sterile) 10 ML IVP SCH (08:44)
[2020-04-04] MEDS: Aspirin Enteric Coated 81 MG Tablet PO SCH (08:48)
[2020-04-04] MEDS: Doxycycline 100 MG in 0.9 % Sodium Chloride Mini Bag 100 ML IVPB SCH ×2 (08:59→17:08)
[2020-04-04] MEDS ORDERED: *HR* Amiodarone 200 MG TABLET PO SCH (09:00)
[2020-04-04] MEDS ORDERED: GI Cocktail 40 ML EACH PO ONE (11:05)
[2020-04-04] MEDS: Sucralfate 1 GM TABLET PO SCH ×3 (12:34→20:00)
[2020-04-04] MEDS: Dexamethasone 4 MG/ML VIAL IVP SCH (12:34)
[2020-04-04] MEDS ORDERED: *HR* Water for inj. (sterile) Vial IV ONE (16:19)
[2020-04-04] MEDS ORDERED: *HR* LORazepam 2 MG/ML VIAL IVP ONE (16:19)
[2020-04-05] MEDS: Ringers Solution, Lactated 1,000 ML IVC SCH (03:34)
[2020-04-05] MEDS: Amiodarone Premix 360 MG/200 ML BAG IVC SCH ×2 (05:02→10:43)
[2020-04-05 05:51] LABS: Basophils % 0.3 %; Hematocrit 30.9 % (35.3-44.9); Hemoglobin 9.9 g/dL (11.5-15.4); Immature Granulocytes % 2.6 % (0-4); Lymphocytes # 0.8 K/mcL (0.6-4.6); Lymphocytes % 11.5 %; Mean Corpuscular Hemoglobin 35.6 pg (28.0-33.3); Mean Corpuscular Volume 111.2 fL (83.0-100.0); Mean Platelet Volume 12.1 fL (9.4-12.4); Monocytes # 0.3 K/mcL (0.0-1.3); Nucleated Red Blood Cells 0.7 /100 WBC (0); Platelet Count 160 K/mcL (140-400); Red Blood Count 2.78 M/mcL (3.82-4.97); Red Cell Distribution Width 14.3 % (11.5-14.5); Segmented Neutrophils % 81.6 %; White Blood Count 7.3 K/mcL (4.3-11.1)
[2020-04-05] MEDS: Pantoprazole 40 MG VIAL IVP SCH ×2 (05:55→17:18)
[2020-04-05] MEDS: *HR* Enoxaparin 80 MG/0.8 ML SYRINGE SQ SCH (05:55)
[2020-04-05] MEDS: Doxycycline 100 MG in 0.9 % Sodium Chloride Mini Bag 100 ML IVPB SCH (05:55)
[2020-04-05 06:12] LABS: BUN/Creatinine Ratio 33 (6-26); Blood Urea Nitrogen 26 mg/dL (8-23); Calcium 8.7 mg/dL (8.6-10.3); Carbon Dioxide 23 mEq/L (23-29); Chloride 104 mEq/L (98-107); Glucose 147 mg/dL (70-105); Osmolality,Calculated 291 (280-300); Sodium 137 mEq/L (136-145); eGFR For African Americans > 60 (> 60); eGFR For Non-African Americans > 60 (> 60)
[2020-04-05 06:18] LABS: Anisocytosis 1+ (Not Present); Macrocytosis Present (Not Present); Platelet Estimate Normal (Normal)
[2020-04-05] MEDS: Aspirin Enteric Coated 81 MG Tablet PO SCH (08:07)
[2020-04-05] MEDS: Sucralfate 1 GM TABLET PO SCH ×4 (08:07→21:42)
[2020-04-05] MEDS: cefTRIAXone 1,000 MG in Water for inj. (sterile) 10 ML IVP SCH (08:07)
[2020-04-05] MEDS: Dexamethasone 4 MG/ML VIAL IVP SCH (08:08)
[2020-04-05] MEDS ORDERED: Metoprolol XL (24 HR) Succ 50 MG TAB.ER.24H PO SCH (09:00)
[2020-04-05] MEDS: Ondansetron 4 MG/2 ML VIAL IVP PRN ×2 (11:34→17:18)
[2020-04-05] MEDS: *HR* Amiodarone 200 MG TABLET PO SCH (12:21)
[2020-04-05] MEDS ORDERED: Nitroglycerin 0.4 MG TAB.SUBL SL PRN (18:49)
[2020-04-05] MEDS: Doxycycline 100 MG CAPSULE PO SCH (21:41)
[2020-04-05] MEDS: Metoprolol XL (24 HR) Succ 50 MG TAB.ER.24H PO SCH (21:41)
[2020-04-05] MEDS: Apixaban 5 MG TABLET PO SCH (21:42)
[2020-04-06] MEDS: Pantoprazole 40 MG VIAL IVP SCH (05:40)
[2020-04-06] MEDS: Ondansetron 4 MG/2 ML VIAL IVP PRN (05:55)
[2020-04-06 06:01] LABS: Basophils % 0.2 %; Hematocrit 31.5 % (35.3-44.9); Immature Granulocytes % 2.8 % (0-4); Lymphocytes # 0.8 K/mcL (0.6-4.6); Lymphocytes % 9.6 %; Mean Corpuscular HGB Conc 31.7 g/dL (31.6-35.5); Mean Corpuscular Volume 113.3 fL (83.0-100.0); Mean Platelet Volume 12.4 fL (9.4-12.4); Monocytes # 0.4 K/mcL (0.0-1.3); Monocytes % 4.6 %; Neutrophils # 6.9 K/mcL (1.6-8.9); Nucleated Red Blood Cells 5.9 /100 WBC (0); Platelet Count 171 K/mcL (140-400); Red Blood Count 2.78 M/mcL (3.82-4.97); Red Cell Distribution Width 14.4 % (11.5-14.5); Segmented Neutrophils % 82.8 %; White Blood Count 8.3 K/mcL (4.3-11.1)
[2020-04-06 06:13] LABS: BUN/Creatinine Ratio 39 (6-26); Blood Urea Nitrogen 41 mg/dL (8-23); Calcium 8.7 mg/dL (8.6-10.3); Carbon Dioxide 21 mEq/L (23-29); Chloride 104 mEq/L (98-107); Glucose 150 mg/dL (70-105); Osmolality,Calculated 297 (280-300); Potassium 5.5 mEq/L (3.5-5.1); Sodium 137 mEq/L (136-145); eGFR For African Americans > 60 (> 60); eGFR For Non-African Americans 51 (> 60)
[2020-04-06 06:17] LABS: Magnesium 2.6 mg/dL (1.6-2.6)
[2020-04-06 06:18] LABS: Macrocytosis Present (Not Present); Platelet Estimate Normal (Normal)
[2020-04-06] MEDS: Metoprolol XL (24 HR) Succ 50 MG TAB.ER.24H PO SCH ×2 (07:40→20:48)
[2020-04-06] MEDS: Apixaban 5 MG TABLET PO SCH ×2 (07:40→20:48)
[2020-04-06] MEDS: Aspirin Enteric Coated 81 MG Tablet PO SCH (07:40)
[2020-04-06] MEDS: allopurinoL 300 MG TABLET PO SCH (07:40)
[2020-04-06] MEDS: Sucralfate 1 GM TABLET PO SCH ×4 (07:40→20:48)
[2020-04-06] MEDS: *HR* Amiodarone 200 MG TABLET PO SCH (07:41)
[2020-04-06] MEDS: Doxycycline 100 MG CAPSULE PO SCH ×2 (07:41→20:48)
[2020-04-06] MEDS: Dexamethasone 4 MG/ML VIAL IVP SCH (07:41)
[2020-04-06] MEDS: cefTRIAXone 1,000 MG in Water for inj. (sterile) 10 ML IVP SCH (07:42)
[2020-04-06] MEDS ORDERED: Perflutren Lipid Microsphere 1.3 ML in 0.9 % Sodium Chloride 8.7 ML IVP PRN (09:20)
[2020-04-06] MEDS: *HR* FentaNYL PATCH 50 MCG PATCH TD SCH (17:08)
[2020-04-06] MEDS: Ergocalciferol (VIT D2) 50,000 UNIT (1.25MG) CAP PO SCH (17:09)
[2020-04-07 04:53] LABS: Basophils % 0.2 %; Hematocrit 26.8 % (35.3-44.9); Immature Granulocytes % 2.5 % (0-4); Lymphocytes # 0.4 K/mcL (0.6-4.6); Lymphocytes % 7.8 %; Mean Corpuscular HGB Conc 31.3 g/dL (31.6-35.5); Mean Corpuscular Volume 111.7 fL (83.0-100.0); Mean Platelet Volume 11.7 fL (9.4-12.4); Monocytes # 0.3 K/mcL (0.0-1.3); Monocytes % 5.8 %; Nucleated Red Blood Cells 7.1 /100 WBC (0); Platelet Count 147 K/mcL (140-400); Red Cell Distribution Width 14.1 % (11.5-14.5); Segmented Neutrophils % 83.7 %; White Blood Count 5.7 K/mcL (4.3-11.1)
[2020-04-07 05:00] LABS: Hemoglobin 8.4 g/dL (11.5-15.4); Neutrophils # 4.8 K/mcL (1.6-8.9)
[2020-04-07 05:15] LABS: Magnesium 2.5 mg/dL (1.6-2.6)
[2020-04-07 05:20] LABS: BUN/Creatinine Ratio 46 (6-26); Blood Urea Nitrogen 43 mg/dL (8-23); Calcium 8.3 mg/dL (8.6-10.3); Carbon Dioxide 25 mEq/L (23-29); Chloride 105 mEq/L (98-107); Glucose 135 mg/dL (70-105); Osmolality,Calculated 301 (280-300); Potassium 3.6 mEq/L (3.5-5.1); Sodium 139 mEq/L (136-145); eGFR For African Americans > 60 (> 60); eGFR For Non-African Americans 57 (> 60)
[2020-04-07 05:28] LABS: Thyroid Stimulating Hormone 1.38 mcIU/mL (0.340-5.600)
[2020-04-07 05:33] LABS: Anisocytosis 1+ (Not Present); Macrocytosis Present (Not Present); Platelet Estimate Normal (Normal)
[2020-04-07] MEDS: Apixaban 5 MG TABLET PO SCH ×2 (09:40→19:45)
[2020-04-07] MEDS: *HR* Amiodarone 200 MG TABLET PO SCH (09:40)
[2020-04-07] MEDS: Dexamethasone 4 MG/ML VIAL IVP SCH (09:40)
[2020-04-07] MEDS: Sucralfate 1 GM TABLET PO SCH ×4 (09:40→19:46)
[2020-04-07] MEDS: Metoprolol XL (24 HR) Succ 50 MG TAB.ER.24H PO SCH ×2 (09:40→19:45)
[2020-04-07] MEDS: Doxycycline 100 MG CAPSULE PO SCH ×2 (09:40→19:45)
[2020-04-07] MEDS: Aspirin Enteric Coated 81 MG Tablet PO SCH (09:40)
[2020-04-07] MEDS: cefTRIAXone 1,000 MG in Water for inj. (sterile) 10 ML IVP SCH (09:41)
[2020-04-08 05:34] LABS: Basophils % 0.1 %; Hematocrit 26.9 % (35.3-44.9); Hemoglobin 8.5 g/dL (11.5-15.4); Immature Granulocytes % 1.8 % (0-4); Lymphocytes # 0.5 K/mcL (0.6-4.6); Lymphocytes % 7.3 %; Mean Corpuscular HGB Conc 31.6 g/dL (31.6-35.5); Mean Corpuscular Hemoglobin 35.9 pg (28.0-33.3); Mean Corpuscular Volume 113.5 fL (83.0-100.0); Mean Platelet Volume 12.1 fL (9.4-12.4); Monocytes # 0.3 K/mcL (0.0-1.3); Monocytes % 4.2 %; Neutrophils # 5.8 K/mcL (1.6-8.9); Nucleated Red Blood Cells 2.7 /100 WBC (0); Platelet Count 158 K/mcL (140-400); Red Blood Count 2.37 M/mcL (3.82-4.97); Red Cell Distribution Width 14.4 % (11.5-14.5); Segmented Neutrophils % 86.6 %; White Blood Count 6.7 K/mcL (4.3-11.1)
[2020-04-08 05:48] LABS: BUN/Creatinine Ratio 53 (6-26); Blood Urea Nitrogen 42 mg/dL (8-23); Calcium 8.2 mg/dL (8.6-10.3); Carbon Dioxide 24 mEq/L (23-29); Chloride 104 mEq/L (98-107); Glucose 139 mg/dL (70-105); Magnesium 2.4 mg/dL (1.6-2.6); Osmolality,Calculated 299 (280-300); Sodium 138 mEq/L (136-145); eGFR For African Americans > 60 (> 60); eGFR For Non-African Americans > 60 (> 60)
[2020-04-08 06:06] LABS: Anisocytosis 1+ (Not Present); Macrocytosis Present (Not Present); Platelet Estimate Normal (Normal)
[2020-04-08 06:07] LABS: Reactive Lymphocytes Present (Not Present)
[2020-04-08] MEDS: Sucralfate 1 GM TABLET PO SCH ×4 (07:38→21:00)
[2020-04-08] MEDS: Aspirin Enteric Coated 81 MG Tablet PO SCH (08:51)
[2020-04-08] MEDS: *HR* Amiodarone 200 MG TABLET PO SCH (08:51)
[2020-04-08] MEDS: Apixaban 5 MG TABLET PO SCH ×2 (08:51→21:00)
[2020-04-08] MEDS: Metoprolol XL (24 HR) Succ 50 MG TAB.ER.24H PO SCH (08:51)
[2020-04-08] MEDS: Dexamethasone 4 MG/ML VIAL IVP SCH (08:51)
[2020-04-08] MEDS: Neosporin OINT 15 GM TUBE TP SCH ×2 (09:29→21:00)
[2020-04-08] MEDS: allopurinoL 300 MG TABLET PO SCH (10:22)
[2020-04-08] MEDS: Acetaminophen 325 MG TABLET PO PRN (23:44)
[2020-04-09 05:32] LABS: Basophils % 0.2 %; Hematocrit 29.6 % (35.3-44.9); Hemoglobin 9.5 g/dL (11.5-15.4); Immature Granulocytes % 2.3 % (0-4); Lymphocytes # 0.7 K/mcL (0.6-4.6); Lymphocytes % 8.1 %; Mean Corpuscular HGB Conc 32.1 g/dL (31.6-35.5); Mean Corpuscular Hemoglobin 35.2 pg (28.0-33.3); Mean Corpuscular Volume 109.6 fL (83.0-100.0); Mean Platelet Volume 12.2 fL (9.4-12.4); Monocytes # 0.4 K/mcL (0.0-1.3); Monocytes % 4.6 %; Neutrophils # 7.7 K/mcL (1.6-8.9); Nucleated Red Blood Cells 1.6 /100 WBC (0); Platelet Count 181 K/mcL (140-400); Red Cell Distribution Width 14.3 % (11.5-14.5); Segmented Neutrophils % 84.8 %; White Blood Count 9.1 K/mcL (4.3-11.1)
[2020-04-09 07:46] LABS: BUN/Creatinine Ratio 52 (6-26); Blood Urea Nitrogen 36 mg/dL (8-23); Calcium 8.4 mg/dL (8.6-10.3); Carbon Dioxide 24 mEq/L (23-29); Chloride 106 mEq/L (98-107); Glucose 115 mg/dL (70-105); Magnesium 2.3 mg/dL (1.6-2.6); Osmolality,Calculated 293 (280-300); Potassium 4.5 mEq/L (3.5-5.1); Sodium 137 mEq/L (136-145); eGFR For African Americans > 60 (> 60); eGFR For Non-African Americans > 60 (> 60)
[2020-04-09] MEDS: Aspirin Enteric Coated 81 MG Tablet PO SCH (08:29)
[2020-04-09] MEDS: Metoprolol XL (24 HR) Succ 50 MG TAB.ER.24H PO SCH (08:29)
[2020-04-09] MEDS: *HR* Amiodarone 200 MG TABLET PO SCH (08:29)
[2020-04-09] MEDS: Dexamethasone 4 MG/ML VIAL IVP SCH (08:29)
[2020-04-09] MEDS: allopurinoL 300 MG TABLET PO SCH (08:29)
[2020-04-09] MEDS: Neosporin OINT 15 GM TUBE TP SCH ×2 (08:30→21:16)
[2020-04-09] MEDS: Sucralfate 1 GM TABLET PO SCH ×4 (10:09→21:16)
[2020-04-09] MEDS: Ergocalciferol (VIT D2) 50,000 UNIT (1.25MG) CAP PO SCH (16:35)
[2020-04-09] MEDS: *HR* FentaNYL PATCH 50 MCG PATCH TD SCH (16:35)
[2020-04-10 02:45] LABS: Hematocrit 29.1 % (35.3-44.9); Hemoglobin 8.9 g/dL (11.5-15.4); Mean Corpuscular HGB Conc 30.6 g/dL (31.6-35.5); Mean Corpuscular Hemoglobin 34.5 pg (28.0-33.3); Mean Corpuscular Volume 112.8 fL (83.0-100.0); Mean Platelet Volume 11.8 fL (9.4-12.4); Platelet Count 191 K/mcL (140-400); Red Blood Count 2.58 M/mcL (3.82-4.97); Red Cell Distribution Width 14.3 % (11.5-14.5); White Blood Count 8.5 K/mcL (4.3-11.1)
[2020-04-10 03:25] LABS: BUN/Creatinine Ratio 49 (6-26); Blood Urea Nitrogen 33 mg/dL (8-23); Calcium 8.3 mg/dL (8.6-10.3); Carbon Dioxide 25 mEq/L (23-29); Chloride 105 mEq/L (98-107); Glucose 144 mg/dL (70-105); Osmolality,Calculated 292 (280-300); Potassium 5.1 mEq/L (3.5-5.1); Sodium 136 mEq/L (136-145); eGFR For African Americans > 60 (> 60); eGFR For Non-African Americans > 60 (> 60)
[2020-04-10] MEDS: *HR* Amiodarone 200 MG TABLET PO SCH (09:24)
[2020-04-10] MEDS: allopurinoL 300 MG TABLET PO SCH (09:24)
[2020-04-10] MEDS: Aspirin Enteric Coated 81 MG Tablet PO SCH (09:24)
[2020-04-10] MEDS: Dexamethasone 4 MG/ML VIAL IVP SCH (09:25)
[2020-04-10] MEDS: Metoprolol XL (24 HR) Succ 50 MG TAB.ER.24H PO SCH (09:25)
[2020-04-10] MEDS: Sucralfate 1 GM TABLET PO SCH ×4 (09:47→21:49)
[2020-04-10] MEDS: Neosporin OINT 15 GM TUBE TP SCH ×2 (09:50→19:31)
[2020-04-10] MEDS: Acetaminophen 325 MG TABLET PO PRN (12:49)
[2020-04-10] MEDS ORDERED: *HR* Heparin 10,000 UNIT/10 ML VIAL ONE (14:24)
[2020-04-10] MEDS ORDERED: ISOVUE-370 200 ML INFUS..BTL ONE (14:25)
[2020-04-10] MEDS ORDERED: Nitroglycerin 1,000 MCG/10 ML VIAL IV ONE (14:25)
[2020-04-10] MEDS ORDERED: 0.9 % Sodium Chloride 2,000 ML ONE (14:25)
[2020-04-10] MEDS ORDERED: Heparin 1,000 UNITS/500 mL 500 ML ONE (14:25)
[2020-04-10] MEDS ORDERED: *HR* FentaNYL (PF) 100 MCG/2 ML VIAL ONE (15:02)
[2020-04-10] MEDS ORDERED: *HR* Midazolam HCl 2 MG/2 ML VIAL ONE (15:03)
[2020-04-11 05:47] VITALS: BP 170/83
[2020-04-11 08:25] LABS: Hematocrit 30.1 % (35.3-44.9); Hemoglobin 9.6 g/dL (11.5-15.4); Mean Corpuscular HGB Conc 31.9 g/dL (31.6-35.5); Mean Corpuscular Hemoglobin 34.2 pg (28.0-33.3); Mean Corpuscular Volume 107.1 fL (83.0-100.0); Platelet Count 186 K/mcL (140-400); Red Blood Count 2.81 M/mcL (3.82-4.97); Red Cell Distribution Width 13.9 % (11.5-14.5); White Blood Count 8.3 K/mcL (4.3-11.1)
[2020-04-11] MEDS: Sucralfate 1 GM TABLET PO SCH ×2 (10:09→10:12)
[2020-04-11] MEDS: allopurinoL 300 MG TABLET PO SCH (10:12)
[2020-04-11] MEDS: Metoprolol XL (24 HR) Succ 50 MG TAB.ER.24H PO SCH (10:12)
[2020-04-11] MEDS: Aspirin Enteric Coated 81 MG Tablet PO SCH (10:13)
[2020-04-11] MEDS: *HR* Amiodarone 200 MG TABLET PO SCH (10:13)
[2020-04-11] MEDS: Dexamethasone 4 MG/ML VIAL IVP SCH (10:13)
[2020-04-11] MEDS ORDERED: lisinopriL 10 MG TABLET PO SCH (10:30)
[2020-04-11] MEDS ORDERED: Apixaban 5 MG TABLET PO SCH (10:30)
[2020-04-11] MEDS: Neosporin OINT 15 GM TUBE TP SCH (14:42)
== END 2020-04-11 16:20 | disposition home or self-care (01) | DRG 177 ==
LOC: EMEROOARM 06:08 → 2NENU 06:08 → SUATTDRO 10:31 → 2NENU 13:31 → SUATTDRO 04-04 16:57
PROVIDERS: ADMIT Internal Medicine; ATTEND Pharmacist

== ENCOUNTER 2021-06-30 22:26 | Observation (INO) ==
[2021-06-30] MEDS ORDERED: Aspirin 81 MG TAB.CHEW PO ONE (22:58)
[2021-06-30 23:14] LABS: Basophils % 0.5 %; Hematocrit 30.2 % (35.3-44.9); Hemoglobin 9.3 g/dL (11.5-15.4); Immature Granulocytes % 0.3 % (0-4); Lymphocytes # 0.7 K/mcL (0.6-4.6); Lymphocytes % 18.9 %; Mean Corpuscular HGB Conc 30.8 g/dL (31.6-35.5); Mean Corpuscular Hemoglobin 33.9 pg (28.0-33.3); Mean Corpuscular Volume 110.2 fL (83.0-100.0); Mean Platelet Volume 11.5 fL (9.4-12.4); Monocytes # 0.3 K/mcL (0.0-1.3); Monocytes % 8.7 %; Neutrophils # 2.8 K/mcL (1.6-8.9); Red Blood Count 2.74 M/mcL (3.82-4.97); Red Cell Distribution Width 13.5 % (11.5-14.5); Segmented Neutrophils % 70.6 %; White Blood Count 3.9 K/mcL (4.3-11.1)
[2021-06-30 23:17] LABS: Platelet Count 88 K/mcL (140-400)
[2021-06-30 23:32] LABS: INR 1.7; Prothrombin Time 18.6 Seconds (9.4-12.1)
[2021-06-30 23:35] LABS: Activated Partial Thrombo Time 29.8 Seconds (26.0-36.0)
[2021-06-30 23:39] LABS: BUN/Creatinine Ratio 28 (6-26); Blood Urea Nitrogen 39 mg/dL (8-23); Calcium 8.6 mg/dL (8.6-10.3); Carbon Dioxide 23 mEq/L (23-29); Chloride 108 mEq/L (98-107); Glucose 116 mg/dL (70-105); Osmolality,Calculated 298 (280-300); Potassium 4.6 mEq/L (3.5-5.1); Sodium 139 mEq/L (136-145); eGFR For African Americans 43 (> 60); eGFR For Non-African Americans 36 (> 60)
[2021-06-30 23:40] LABS: Troponin I < 0.03 ng/mL (< 0.04)
[2021-07-01] MEDS ORDERED: Ondansetron 4 MG/2 ML VIAL IVP ONE (00:01)
[2021-07-01 00:32] LABS: Bacteria,Urine Few per hpf (None-Few); Bilirubin,Urine Negative (Negative); Blood,Urine Negative (Negative); Clarity,Urine Clear (Clear); Color,Urine Light-Yellow (Yellow); Glucose,Urine (UA) Normal (Normal); Hyaline Casts,Urine Few per lpf (None Seen); Ketones,Urine Negative (Negative); Leukocyte Esterase,Urine Trace (Negative); Mucus,Urine Few per lpf (None-Few); Nitrite,Urine Negative (Negative); Protein,Urine 30 mg/dL (Neg-Trace); RBC,Urine 0-3 per hpf (0-3); Renal Epithelial Cells,Urine Few per hpf (None-Few); Specific Gravity,Urine 1.016 (1.010-1.025); Squamous Epithelial Cell,Urine Few per hpf (None-Few); Urobilinogen,Urine Normal (Normal)
[2021-07-01] MEDS ORDERED: 0.9 % Sodium Chloride 500 ML IVC ONE ×2 (00:39→11:54)
[2021-07-01] MEDS ORDERED: Furosemide 40 MG/4 ML VIAL IVP ONE (00:57)
[2021-07-01] MEDS ORDERED: Ondansetron 4 MG/2 ML VIAL IVP PRN (02:10)
[2021-07-01] MEDS ORDERED: Naloxone 0.4 MG/ML INJ IVP PRN (02:10)
[2021-07-01 02:24] LABS: Influenza A PCR Negative (Negative); Influenza B PCR Negative (Negative); Resp. Syncytial Virus PCR Negative (Negative)
[2021-07-01 02:35] LABS: SARS-CoV-2 by PCR (In House) Negative (Negative)
[2021-07-01 05:42] LABS: Basophils % 0.4 %; Hemoglobin 8.4 g/dL (11.5-15.4); Mean Platelet Volume 11.7 fL (9.4-12.4)
[2021-07-01 05:44] LABS: Eosinophils % 1.6 %; Hematocrit 26.9 % (35.3-44.9); Immature Granulocytes % 0.4 % (0-4); Lymphocytes # 0.9 K/mcL (0.6-4.6); Lymphocytes % 33.3 %; Mean Corpuscular HGB Conc 31.2 g/dL (31.6-35.5); Mean Corpuscular Hemoglobin 34.4 pg (28.0-33.3); Mean Corpuscular Volume 110.2 fL (83.0-100.0); Monocytes # 0.3 K/mcL (0.0-1.3); Monocytes % 12.9 %; Neutrophils # 1.3 K/mcL (1.6-8.9); Red Blood Count 2.44 M/mcL (3.82-4.97); Red Cell Distribution Width 13.3 % (11.5-14.5); Segmented Neutrophils % 51.4 %; White Blood Count 2.6 K/mcL (4.3-11.1)
[2021-07-01 05:50] LABS: Platelet Count 86 K/mcL (140-400)
[2021-07-01 05:56] LABS: Adenovirus Not Detected (Not Detect); Bordetella Pertussis Not Detected (Not Detect); Chlamydophila pneumoniae Not Detected (Not Detect); Coronavirus 229E Not Detected (Not Detect); Coronavirus HKU1 Not Detected (Not Detect); Coronavirus NL63 Not Detected (Not Detect); Coronavirus OC43 Not Detected (Not Detect); Human Metapneumovirus Not Detected (Not Detect); Human Rhinovirus/Enterovirus Not Detected (Not Detect); Influenza A Subtype 2009 H1 Not Detected (Not Detect); Influenza B Not Detected (Not Detect); Mycoplasma pneumoniae Not Detected (Not Detect); Parainfluenza Virus 1 Not Detected (Not Detect); Parainfluenza Virus 2 Not Detected (Not Detect); Parainfluenza Virus 3 Not Detected (Not Detect); Parainfluenza Virus 4 Not Detected (Not Detect); Respiratory Syncytial Virus Not Detected (Not Detect); SARS-CoV-2 Not Detected (Not Detect)
[2021-07-01 06:07] LABS: Folate 13.6 ng/mL (3.0-16.0)
[2021-07-01 06:11] LABS: Troponin I 0.03 ng/mL (< 0.04)
[2021-07-01 06:55] LABS: Macrocytosis Present (Not Present); Platelet Estimate Marked Decrease (Normal)
[2021-07-01 07:44] LABS: Albumin 3.4 g/dL (3.5-5.7); Albumin/Globulin Ratio 1.3 (1.1-2.2); Bilirubin,Direct 0.1 mg/dL (0.0-0.2); Bilirubin,Indirect 0.3 mg/dL (0.0-1.0); Bilirubin,Total 0.4 mg/dL (0.3-1.0); Calcium 8.4 mg/dL (8.6-10.3); Globulin 2.7 g/dL (2.4-3.5); Magnesium 2.3 mg/dL (1.6-2.6); Potassium 4.3 mEq/L (3.5-5.1); Thyroid Stimulating Hormone 0.013 mcIU/mL (0.340-5.600); Total Protein 6.1 g/dL (6.4-8.9)
[2021-07-01] MEDS ORDERED: cefTRIAXone 1,000 MG in 0.9 % Sodium Chloride Mini Bag 100 ML IVPB SCH (09:00)
[2021-07-01] MEDS ORDERED: Azithromycin 500 MG in 0.9 % Sodium Chloride 250 ML IVPB SCH (09:00)
[2021-07-01] MEDS ORDERED: Iron Sucrose Complex 400 MG in 0.9 % Sodium Chloride 250 ML IVPB ONE (09:14)
[2021-07-01] MEDS ORDERED: Aspirin Enteric Coated 81 MG Tablet PO SCH (09:30)
[2021-07-01] MEDS: Apixaban 5 MG TABLET PO SCH ×2 (10:09→19:38)
[2021-07-01] MEDS: allopurinoL 300 MG TABLET PO SCH (10:09)
[2021-07-01] MEDS: Sennosides/Docusate Sodium TABLET PO SCH ×2 (10:09→19:38)
[2021-07-01] MEDS: *HR* Amiodarone 200 MG TABLET PO SCH (10:09)
[2021-07-01] MEDS: *HR* HYDROcodone/Acet 10/325 mg TABLET PO PRN (10:10)
[2021-07-01] MEDS: Metoprolol XL (24 HR) Succ 50 MG TAB.ER.24H PO SCH (10:10)
[2021-07-01] MEDS ORDERED: *HR* FentaNYL PATCH 50 MCG PATCH TD SCH (18:30)
[2021-07-01] MEDS: Sacubitril/Valsartan 24/26 MG 1 TABLET PO SCH (19:38)
[2021-07-01] MEDS: Zonisamide 100 MG CAPSULE PO SCH (19:38)
[2021-07-01] MEDS ORDERED: Mirtazapine 15 MG TABLET PO PRN (21:00)
[2021-07-02 01:26] LABS: Basophils % 0.4 %; Red Cell Distribution Width 13.5 % (11.5-14.5)
[2021-07-02 01:29] LABS: Eosinophils # 0.1 K/mcL (0.0-0.6); Eosinophils % 2.4 %; Hematocrit 26.3 % (35.3-44.9); Immature Granulocytes % 0.4 % (0-4); Immature Platelets 6.4 % (1.1-6.1); Lymphocytes % 33.6 %; Mean Corpuscular HGB Conc 30.4 g/dL (31.6-35.5); Mean Corpuscular Hemoglobin 33.6 pg (28.0-33.3); Mean Corpuscular Volume 110.5 fL (83.0-100.0); Monocytes # 0.3 K/mcL (0.0-1.3); Monocytes % 11.9 %; Neutrophils # 1.3 K/mcL (1.6-8.9); Red Blood Count 2.38 M/mcL (3.82-4.97); Segmented Neutrophils % 51.3 %; White Blood Count 2.5 K/mcL (4.3-11.1)
[2021-07-02 01:31] LABS: Lymphocytes # 0.8 K/mcL (0.6-4.6); Platelet Count 79 K/mcL (140-400)
[2021-07-02 01:49] LABS: Calcium 7.9 mg/dL (8.6-10.3); Potassium 4.2 mEq/L (3.5-5.1)
[2021-07-02 02:01] LABS: Triiodothyronine (T3) Free 2.39 pg/mL (2.50-3.90)
[2021-07-02] MEDS ORDERED: Sucralfate 1 GM TABLET PO SCH (09:00)
[2021-07-02] MEDS: *HR* HYDROcodone/Acet 10/325 mg TABLET PO PRN ×2 (09:12→17:44)
[2021-07-02] MEDS: Apixaban 5 MG TABLET PO SCH ×2 (09:13→20:34)
[2021-07-02] MEDS: allopurinoL 300 MG TABLET PO SCH (09:13)
[2021-07-02] MEDS: Zonisamide 100 MG CAPSULE PO SCH ×2 (09:13→20:34)
[2021-07-02] MEDS: polyethylene glycoL 3350 17 GM POWD.PACK PO SCH (09:13)
[2021-07-02] MEDS: *HR* Amiodarone 200 MG TABLET PO SCH (09:13)
[2021-07-02] MEDS: Sennosides/Docusate Sodium TABLET PO SCH ×2 (09:13→20:34)
[2021-07-02] MEDS: Sacubitril/Valsartan 24/26 MG 1 TABLET PO SCH ×2 (09:13→20:34)
[2021-07-02] MEDS: Metoprolol XL (24 HR) Succ 50 MG TAB.ER.24H PO SCH (09:13)
[2021-07-02] MEDS: Furosemide 40 MG TABLET PO SCH (14:50)
[2021-07-03] MEDS: *HR* HYDROcodone/Acet 10/325 mg TABLET PO PRN ×2 (01:49→09:29)
[2021-07-03 02:16] LABS: Basophils % 0.3 %; Immature Granulocytes % 0.3 % (0-4); Red Cell Distribution Width 13.5 % (11.5-14.5); White Blood Count 2.9 K/mcL (4.3-11.1)
[2021-07-03 02:18] LABS: Eosinophils # 0.1 K/mcL (0.0-0.6); Eosinophils % 3.4 %; Hematocrit 27.6 % (35.3-44.9); Hemoglobin 8.3 g/dL (11.5-15.4); Immature Platelets 5.8 % (1.1-6.1); Lymphocytes % 34.8 %; Mean Corpuscular HGB Conc 30.1 g/dL (31.6-35.5); Mean Corpuscular Hemoglobin 33.9 pg (28.0-33.3); Mean Corpuscular Volume 112.7 fL (83.0-100.0); Mean Platelet Volume 11.8 fL (9.4-12.4); Monocytes # 0.3 K/mcL (0.0-1.3); Monocytes % 11.4 %; Neutrophils # 1.4 K/mcL (1.6-8.9); Nucleated Red Blood Cells 0.7 /100 WBC (0); Red Blood Count 2.45 M/mcL (3.82-4.97); Segmented Neutrophils % 49.8 %
[2021-07-03 02:22] LABS: Platelet Count 90 K/mcL (140-400)
[2021-07-03 02:30] LABS: Calcium 8.1 mg/dL (8.6-10.3); Potassium 4.2 mEq/L (3.5-5.1)
[2021-07-03 03:04] LABS: Macrocytosis Present (Not Present); Platelet Estimate Decreased (Normal)
[2021-07-03 07:50] VITALS: BP 114/63; PULSE 63; TEMP 98.6; O2SAT 96
[2021-07-03] MEDS: allopurinoL 300 MG TABLET PO SCH (09:29)
[2021-07-03] MEDS: Zonisamide 100 MG CAPSULE PO SCH (09:29)
[2021-07-03] MEDS: Sacubitril/Valsartan 24/26 MG 1 TABLET PO SCH (09:29)
[2021-07-03] MEDS: Furosemide 40 MG TABLET PO SCH (09:30)
[2021-07-03] MEDS: polyethylene glycoL 3350 17 GM POWD.PACK PO SCH (09:30)
[2021-07-03] MEDS: *HR* Amiodarone 200 MG TABLET PO SCH (09:30)
[2021-07-03] MEDS: Sennosides/Docusate Sodium TABLET PO SCH (09:30)
[2021-07-03] MEDS: Apixaban 5 MG TABLET PO SCH (09:30)
[2021-07-03] MEDS: Metoprolol XL (24 HR) Succ 50 MG TAB.ER.24H PO SCH (09:30)
== END 2021-07-03 11:42 | disposition home or self-care (01) ==
LOC: EMEROOARM 22:26 → 2ANU 22:26 → SUATTDRO 07-01 02:39 → 2ANU 07-01 02:59
PROVIDERS: ADMIT Internal Medicine; ATTEND Family Medicine

== ENCOUNTER 2022-01-15 13:26 | Observation (INO) ==
[2022-01-15 15:44] LABS: VBG HCO3 22 mEq/L (21-27); VBG PCO2 38 mmHg (41-51); VBG PH 7.36 pH Units (7.32-7.42); VBG PO2 116 mmHg (25-50)
[2022-01-15 16:15] LABS: BUN/Creatinine Ratio 30 (6-26); Blood Urea Nitrogen 26 mg/dL (8-23); Calcium 8.7 mg/dL (8.6-10.3); Carbon Dioxide 23 mEq/L (23-29); Chloride 107 mEq/L (98-107); Glucose 95 mg/dL (70-105); Osmolality,Calculated 289 (280-300); Potassium 5.7 mEq/L (3.5-5.1); Sodium 137 mEq/L (136-145); Troponin I < 0.03 ng/mL (< 0.04)
[2022-01-15 17:03] LABS: Basophils % 0.5 %; Eosinophils % 0.4 %; Hematocrit 39.7 % (35.3-44.9); Hemoglobin 12.5 g/dL (11.5-15.4); Immature Granulocytes % 2.8 % (0-4); Lymphocytes # 1.7 K/mcL (0.6-4.6); Lymphocytes % 21.4 %; Mean Corpuscular HGB Conc 31.5 g/dL (31.6-35.5); Mean Corpuscular Hemoglobin 33.8 pg (28.0-33.3); Mean Corpuscular Volume 107.3 fL (83.0-100.0); Mean Platelet Volume 10.2 fL (9.4-12.4); Monocytes # 0.6 K/mcL (0.0-1.3); Monocytes % 7.4 %; Neutrophils # 5.2 K/mcL (1.6-8.9); Platelet Count 130 K/mcL (140-400); Red Cell Distribution Width 14.8 % (11.5-14.5); Segmented Neutrophils % 67.5 %; White Blood Count 7.7 K/mcL (4.3-11.1)
[2022-01-15] MEDS ORDERED: Furosemide 40 MG/4 ML VIAL IVP ONE (17:51)
[2022-01-15] MEDS ORDERED: Ondansetron 4 MG/2 ML VIAL IVP PRN (19:34)
[2022-01-15] MEDS ORDERED: Acetaminophen 325 MG TABLET PO PRN (19:34)
[2022-01-15] MEDS ORDERED: Naloxone 0.4 MG/ML INJ IVP PRN (19:34)
[2022-01-15] MEDS ORDERED: Melatonin 3 MG TABLET PO PRN (19:34)
[2022-01-15] MEDS: Apixaban 5 MG TABLET PO SCH (21:53)
[2022-01-15] MEDS: Sacubitril/Valsartan 49/51 MG 1 TABLET PO SCH (21:53)
[2022-01-15] MEDS ORDERED: *HR* FentaNYL PATCH 50 MCG PATCH TD SCH (22:30)
[2022-01-15 23:14] LABS: Hyaline Casts,Urine Few per lpf (None Seen); WBC,Urine 0-3 per hpf (0-3)
[2022-01-15 23:21] LABS: Bilirubin,Urine Negative (Negative); Blood,Urine Small (Negative); Clarity,Urine Clear (Clear); Color,Urine Colorless (Yellow); Glucose,Urine (UA) Normal (Normal); Ketones,Urine Negative (Negative); Leukocyte Esterase,Urine Negative (Negative); Nitrite,Urine Negative (Negative); PH,Urine 6.5 pH Units (5.0-8.0); Protein,Urine Negative (Neg-Trace); Specific Gravity,Urine 1.009 (1.010-1.025); Urobilinogen,Urine Normal (Normal)
[2022-01-15 23:46] LABS: Adenovirus Not Detected (Not Detect); Coronavirus 229E Not Detected (Not Detect); Coronavirus HKU1 Not Detected (Not Detect); Coronavirus NL63 Not Detected (Not Detect); Coronavirus OC43 Not Detected (Not Detect); Human Metapneumovirus Not Detected (Not Detect); Human Rhinovirus/Enterovirus Not Detected (Not Detect); Influenza A Subtype 2009 H1 Not Detected (Not Detect); Influenza B Not Detected (Not Detect); Parainfluenza Virus 1 Not Detected (Not Detect); SARS-CoV-2 Not Detected (Not Detect)
[2022-01-15 23:47] LABS: Bordetella Pertussis Not Detected (Not Detect); Chlamydophila pneumoniae Not Detected (Not Detect); Mycoplasma pneumoniae Not Detected (Not Detect); Parainfluenza Virus 2 Not Detected (Not Detect); Parainfluenza Virus 3 Not Detected (Not Detect); Parainfluenza Virus 4 Not Detected (Not Detect); Respiratory Syncytial Virus Not Detected (Not Detect)
[2022-01-16] MEDS: *HR* HYDROcodone/Acet 10/325 mg TABLET PO PRN ×2 (02:03→11:58)
[2022-01-16 03:37] LABS: Basophils % 0.3 %; Eosinophils % 0.3 %; Hematocrit 37.6 % (35.3-44.9); Hemoglobin 11.9 g/dL (11.5-15.4); Immature Granulocytes % 1.8 % (0-4); Immature Platelets 4.4 % (1.1-6.1); Lymphocytes # 1.6 K/mcL (0.6-4.6); Lymphocytes % 20.3 %; Mean Corpuscular HGB Conc 31.6 g/dL (31.6-35.5); Mean Corpuscular Hemoglobin 33.4 pg (28.0-33.3); Mean Corpuscular Volume 105.6 fL (83.0-100.0); Mean Platelet Volume 10.5 fL (9.4-12.4); Monocytes # 0.9 K/mcL (0.0-1.3); Monocytes % 11.2 %; Neutrophils # 5.2 K/mcL (1.6-8.9); Platelet Count 156 K/mcL (140-400); Red Blood Count 3.56 M/mcL (3.82-4.97); Red Cell Distribution Width 14.8 % (11.5-14.5); Segmented Neutrophils % 66.1 %; White Blood Count 7.8 K/mcL (4.3-11.1)
[2022-01-16 03:40] LABS: INR 1.4; Prothrombin Time 15.6 Seconds (9.4-12.1)
[2022-01-16 03:42] LABS: Activated Partial Thrombo Time 30.8 Seconds (26.0-36.0)
[2022-01-16 03:48] LABS: Albumin 4.3 g/dL (3.5-5.7); Albumin/Globulin Ratio 1.4 (1.1-2.2); Bilirubin,Total 0.5 mg/dL (0.3-1.0); Calcium 8.7 mg/dL (8.6-10.3); Chol/HDL Ratio 3.2 (0-4.9); Magnesium 2.1 mg/dL (1.6-2.6); Phosphorous 4.6 mg/dL (2.7-4.5); Potassium 4.2 mEq/L (3.5-5.1); Total Protein 7.3 g/dL (6.4-8.9)
[2022-01-16 03:49] LABS: % Iron Saturation 6 % (15-50); Iron 23 mcg/dL (50-170); Transferrin 294 mg/dL (203-362)
[2022-01-16 04:08] LABS: Ferritin 54 ng/mL (10-120)
[2022-01-16 04:13] LABS: Folate 13.6 ng/mL (3.0-16.0)
[2022-01-16 04:14] LABS: Vitamin B12 > 1500 pg/mL (250-1100)
[2022-01-16] MEDS ORDERED: Furosemide 20 MG/2 ML VIAL IVP SCH (09:00)
[2022-01-16] MEDS: Metoprolol XL (24 HR) Succ 25 MG TAB.ER.24H PO SCH (09:48)
[2022-01-16] MEDS: Apixaban 5 MG TABLET PO SCH ×2 (09:49→20:13)
[2022-01-16] MEDS: Sacubitril/Valsartan 49/51 MG 1 TABLET PO SCH (10:12)
[2022-01-16] MEDS ORDERED: *HR* FentaNYL PATCH 50 MCG PATCH TD SCH (11:00)
[2022-01-16] MEDS ORDERED: Mirtazapine 15 MG TABLET PO PRN (11:07)
[2022-01-16] MEDS: *HR* Amiodarone 200 MG TABLET PO SCH (11:58)
[2022-01-16] MEDS: Zonisamide 100 MG CAPSULE PO SCH ×2 (16:34→20:13)
[2022-01-16] MEDS ORDERED: Sacubitril/Valsartan 49/51 MG 1 TABLET PO SCH (21:00)
[2022-01-16] MEDS ORDERED: Sacubitril/Valsartan 24/26 MG 1 TABLET PO SCH (21:00)
[2022-01-17 07:23] LABS: Eosinophils % 0.2 %; Hematocrit 35.1 % (35.3-44.9)
[2022-01-17 07:25] LABS: Basophils % 0.3 %; Hemoglobin 11.1 g/dL (11.5-15.4); Immature Platelets 3.8 % (1.1-6.1); Lymphocytes # 1.2 K/mcL (0.6-4.6); Lymphocytes % 18.8 %; Mean Corpuscular HGB Conc 31.6 g/dL (31.6-35.5); Mean Corpuscular Hemoglobin 33.6 pg (28.0-33.3); Mean Corpuscular Volume 106.4 fL (83.0-100.0); Mean Platelet Volume 10.5 fL (9.4-12.4); Monocytes # 0.7 K/mcL (0.0-1.3); Monocytes % 10.3 %; Neutrophils # 4.4 K/mcL (1.6-8.9); Platelet Count 122 K/mcL (140-400); Red Cell Distribution Width 15.1 % (11.5-14.5); Segmented Neutrophils % 68.4 %; White Blood Count 6.4 K/mcL (4.3-11.1)
[2022-01-17 07:37] LABS: Calcium 8.2 mg/dL (8.6-10.3); Magnesium 2.1 mg/dL (1.6-2.6); Potassium 4.3 mEq/L (3.5-5.1)
[2022-01-17] MEDS: Metoprolol XL (24 HR) Succ 25 MG TAB.ER.24H PO SCH (08:35)
[2022-01-17] MEDS: *HR* Amiodarone 200 MG TABLET PO SCH (08:37)
[2022-01-17] MEDS: Apixaban 5 MG TABLET PO SCH ×2 (08:37→20:01)
[2022-01-17] MEDS: Zonisamide 100 MG CAPSULE PO SCH ×3 (08:37→20:01)
[2022-01-17] MEDS: *HR* HYDROcodone/Acet 10/325 mg TABLET PO PRN (08:46)
[2022-01-17] MEDS ORDERED: *HR* FentaNYL PATCH 50 MCG PATCH TD SCH (09:00)
[2022-01-17] MEDS ORDERED: polyethylene glycoL 3350 17 GM POWD.PACK PO SCH ×2 (09:00→21:00)
[2022-01-17] MEDS: amLODIPine 5 MG TABLET PO SCH (10:57)
[2022-01-18 07:14] LABS: Basophils % 0.6 %; Eosinophils % 0.4 %; Hematocrit 33.9 % (35.3-44.9); Hemoglobin 10.5 g/dL (11.5-15.4); Immature Granulocytes % 2.4 % (0-4); Lymphocytes % 18.2 %; Mean Corpuscular Hemoglobin 33.2 pg (28.0-33.3); Mean Corpuscular Volume 107.3 fL (83.0-100.0); Mean Platelet Volume 11.4 fL (9.4-12.4); Monocytes # 0.6 K/mcL (0.0-1.3); Monocytes % 10.9 %; Neutrophils # 3.6 K/mcL (1.6-8.9); Platelet Count 149 K/mcL (140-400); Red Blood Count 3.16 M/mcL (3.82-4.97); Red Cell Distribution Width 14.8 % (11.5-14.5); Segmented Neutrophils % 67.5 %; White Blood Count 5.3 K/mcL (4.3-11.1)
[2022-01-18 07:44] VITALS: O2SAT 96
[2022-01-18] MEDS: Metoprolol XL (24 HR) Succ 25 MG TAB.ER.24H PO SCH (09:11)
[2022-01-18] MEDS: *HR* Amiodarone 200 MG TABLET PO SCH (09:12)
[2022-01-18] MEDS: amLODIPine 5 MG TABLET PO SCH (09:12)
[2022-01-18] MEDS: Apixaban 5 MG TABLET PO SCH (09:12)
[2022-01-18] MEDS: *HR* HYDROcodone/Acet 10/325 mg TABLET PO PRN (09:14)
[2022-01-18] MEDS: Zonisamide 100 MG CAPSULE PO SCH (09:14)
[2022-01-18 11:14] LABS: Calcium 8.4 mg/dL (8.6-10.3); Magnesium 2.3 mg/dL (1.6-2.6)
[2022-01-18 11:17] VITALS: BP 117/43; PULSE 57; TEMP 97.4
== END 2022-01-18 14:40 | disposition home or self-care (01) ==
LOC: EMEROOARM 13:26 → 3NENU 13:26 → 3BNU 13:26 → SUATTDRO 01-16 00:08 → 3NENU 01-16 01:09
PROVIDERS: ADMIT Internal Medicine; ATTEND Internal Medicine